=== PATIENT | female | born 1955 | race Caucasian/White ===

== ENCOUNTER 2016-03-23 14:59 | Observation (INO) | payer BC ==
[2016-03-23] MEDS ORDERED: MECLIZINE 12.5 MG TAB PO STA (15:39)
[2016-03-23] MEDS ORDERED: SODIUM CHLORIDE 0.9% 1,000 ML IV STA (15:39)
[2016-03-23 16:02] LABS: Basophils % (A) 1 %; CH 31.1; Eosinophils % (A) 0 %; HCT 40.7 % (34.0-46.0); HDW 2.41; HGB 12.8 gm/dL (11.4-16.0); Luc # (Auto) 0.12; Luc % (Auto) 2; Lymphocytes # (A) 1.5 k/uL (1.0-4.8); Lymphocytes % (A) 21 %; MCH 29.8 pg (25.0-35.0); MCHC 31.5 g/dL (31.0-37.0); MCV 94.8 fL (80.0-100.0); Mean Platelet Volume 7.8; Monocytes % (A) 14 %; Neutrophils # (A) 4.5 k/uL (1.3-7.7); Neutrophils % (A) 63 %; RDW 14.4 % (11.5-15.5); WBC 7.1 k/uL (3.8-10.6); WBC (Perox) 7.64
[2016-03-23 16:10] LABS: ALT 35 U/L (9-52); AST 29 U/L (14-36); Alkaline Phosphatase 62 U/L (38-126); Anion Gap 12 mmol/L; Blood Urea Nitrogen 20 mg/dL (7-17); Calcium 9.5 mg/dL (8.4-10.2); Carbon Dioxide 26 mmol/L (22-30); Chloride 104 mmol/L (98-107); Glucose 78 mg/dL (74-99); Non-African American GFR(MDRD) >60 (>60 ml/min/1.73 sqM); Potassium 4.1 mmol/L (3.5-5.1); Sodium 142 mmol/L (137-145); Total Bilirubin 0.4 mg/dL (0.2-1.3); Total Protein 7.4 g/dL (6.3-8.2)
--- NOTE | 2016-03-23 16:44 | XR ---
EXAMINATION TYPE: XR chest 1V portable DATE OF EXAM: 03/23/2016 4:38 PM Comparison: None Clinical History: 60-year-old female with dizziness, cough, fatigue Findings: Heart is normal size. Aortopulmonary vasculature within normal limits. Some strandy left basilar atel ectasis. No consolidation or pleural effusion. There appears to be old fracture deformity along the p roximal left humerus. Impression: No acute cardiopulmonary process.
[2016-03-23] MEDS ORDERED: DIVALPROEX 500 MG TABLET.DR PO STA (17:19)
--- NOTE | 2016-03-23 17:32 | ED ---
Dizziness HPI - General Source: EMS Mode of arrival: EMS Limitations: no limitations - History of Present Illness MD Complaint: dizziness, difficulty walking -: days(s) Timing: gradual onset Description: "room spinning", difficulty walking History of Same: No Severity: moderate Improves With: remaining still Worsens With: movement Associated Symptoms: denies other symptoms <Allen Del Rio - Last Filed: 03/23/16 18:02> <Deep Norton - Last Filed: 03/23/16 19:07> - General Chief Complaint: Dizziness Stated Complaint: dizziness Time Seen by Provider: 03/23/16 15:04 - History of Present Illness Initial Comments: This patient is a 60-year-old woman who complains of "dizziness." This is been going on for about 3 days and she has had a couple of falls. She states that it is difficult to walk even when using her walker, because she feels that things are spinning. She has also had some difficulty judging distances. The patient denies any injury in the fall that she did have. She landed on her knees but has been able to walk since that time. (Allen Del Rio) - Related Data Home Medications Medication Instructions Recorded Confirmed Ascorbic Acid [Vitamin C] 500 mg PO DAILY 06/15/15 03/23/16 Aspirin 81 mg PO DAILY 06/15/15 03/23/16 Atorvastatin [Lipitor] 10 mg PO HS 06/15/15 03/23/16 Cholecalciferol [Vitamin D3] 1,000 units PO DAILY 06/15/15 03/23/16 Divalproex [Depakote] 250 mg PO DAILY@0900 06/15/15 03/23/16 Divalproex [Depakote] 500 mg PO BID@1400,2100 11/13/15 03/23/16 Loratadine [Claritin] 10 mg PO DAILY 11/13/15 03/23/16 Metoprolol Tartrate [Lopressor] 12.5 mg PO BID 11/13/15 03/23/16 Multivitamins, Thera [Multivitamin] 1 tab PO DAILY 11/13/15 03/23/16 lamoTRIgine [LaMICtal] 50 mg PO DAILY@0900 11/13/15 03/23/16 lamoTRIgine [LaMICtal] 100 mg PO HS 11/13/15 03/23/16 Previous Rx's Medication Instructions Recorded Meclizine [Antivert] 25 mg PO TID #15 tab 03/23/16 Allergies Allergy/AdvReac Type Severity Reaction Status Date / Time No Known Allergies Allergy Verified 03/23/16 15:36 Review of Systems ROS Other: All systems not noted in ROS Statement are negative. Constitutional: Denies: fever, chills, weakness Eyes: Denies: vision change Respiratory: Denies: cough, dyspnea Cardiovascular: Denies: chest pain, palpitations, syncope Gastrointestinal: Denies: abdominal pain, nausea, vomiting Genitourinary: Denies: dysuria, hematuria Musculoskeletal: Denies: back pain Skin: Denies: rash Neurological: Reports: vertigo. Denies: headache, weakness, numbness, paresthesias, confusion <Allen Del Rio - Last Filed: 03/23/16 18:02> ROS Other: All systems not noted in ROS Statement are negative. <Deep Norton - Last Filed: 03/23/16 19:07> ROS Statement: Those systems with pertinent positive or pertinent negative responses have been documented in the HPI. Past Medical History Additional Past Medical History / Comment(s): pettimal seizure, hypertension, hypoglycemia, shingles x2 History of Any Multi-Drug Resistant Organisms: None Reported Past Surgical History: Adenoidectomy, Tonsillectomy Additional Past Surgical History / Comment(s): eye surgery, cataract Past Anesthesia/Blood Transfusion Reactions: No Reported Reaction Past Psychological History: No Psychological Hx Reported Smoking Status: Never smoker Past Alcohol Use History: None Reported Past Drug Use History: None Reported <Allen Del Rio - Last Filed: 03/23/16 18:02> General Exam Limitations: no limitations General appearance: alert, in no apparent distress Head exam: Present: atraumatic, normocephalic Eye exam: Present: normal appearance, nystagmus. Absent: scleral icterus, conjunctival injection ENT exam: Present: normal oropharynx Neck exam: Present: normal inspection Respiratory exam: Present: normal lung sounds bilaterally. Absent: respiratory distress, wheezes, rales, rhonchi, stridor, chest wall tenderness Cardiovascular Exam: Present: regular rate, normal rhythm, normal heart sounds. Absent: systolic murmur, diastolic murmur, rubs, gallop GI/Abdominal exam: Present: soft. Absent: distended, tenderness, guarding, rebound, mass Extremities exam: Present: normal inspection, normal capillary refill. Absent: pedal edema, calf tenderness Back exam: Present: normal inspection. Absent: CVA tenderness (R), CVA tenderness (L) Neurological exam: Present: alert, oriented X3, CN II-XII intact. Absent: motor sensory deficit Skin exam: Present: warm, dry, intact, normal color. Absent: rash <Allen Del Rio - Last Filed: 03/23/16 18:02> EKG Findings - EKG Results: EKG: interpreted by ERMD, sinus rhythm (Rate 71 bpm), normal QRS, normal ST/T - [place]ocks, [place], Hypertrophy, ST Abn: QRS axis and voltage: right axis deviation (+90 to +180) <Allen Del Rio - Last Filed: 03/23/16 18:02> Medical Decision Making - Lab Data Result diagrams: 03/23/16 15:13 03/23/16 15:13 <Allen Del Rio - Last Filed: 03/23/16 18:02> - Lab Data Result diagrams: 03/23/16 15:13 03/23/16 15:13 <Deep Norton - Last Filed: 03/23/16 19:07> - Medical Decision Making The patient was seen and examined. The computed tomography scan of the brain shows a very large subdural hygroma. This apparently is unchanged from recent MRI scan from this past month. Upon reevaluation, the aunt who is the power of divorce attorney relates that she's having multiple falls and difficulty with eating. She does not feel comfortable taking her home. Her dizziness may be related to vertigo but could be from another etiology as well. It is felt as though she benefit from admission and further neurologic workup. She apparently did see a neurosurgeon in [place] this past month and they did not recommend surgical treatment of the subdural hygroma. Case will be discussed with internal medicine in the near future and patient will be admitted. (Deep Norton) - Lab Data Lab Results 03/23/16 03/23/16 03/23/16 Range/Units 15:13 15:13 15:13 WBC 7.1 (3.8-10.6) k/uL RBC 4.30 (3.80-5.40) m/uL Hgb 12.8 (11.4-16.0) gm/dL Hct 40.7 (34.0-46.0) % MCV 94.8 (80.0-100.0) fL MCH 29.8 (25.0-35.0) pg MCHC 31.5 (31.0-37.0) g/dL RDW 14.4 (11.5-15.5) % Plt Count 107 L (150-450) k/uL Neutrophils % 63 % Lymphocytes % 21 % Monocytes % 14 % Eosinophils % 0 % Basophils % 1 % Neutrophils # 4.5 (1.3-7.7) k/uL Lymphocytes # 1.5 (1.0-4.8) k/uL Monocytes # 1.0 (0-1.0) k/uL Eosinophils # 0.0 (0-0.7) k/uL Basophils # 0.0 (0-0.2) k/uL Sodium 142 (137-145) mmol/L Potassium 4.1 (3.5-5.1) mmol/L Chloride 104 (98-107) mmol/L Carbon Dioxide 26 (22-30) mmol/L Anion Gap 12 mmol/L BUN 20 H (7-17) mg/dL Creatinine 0.75 (0.52-1.04) mg/dL Est GFR (MDRD) Af Amer >60 (>60 ml/min/1.73 sqM) Est GFR (MDRD) Non-Af >60 (>60 ml/min/1.73 sqM) Glucose 78 (74-99) mg/dL Plasma Lactic Acid Edgar (0.7-2.0) mmol/L Calcium 9.5 (8.4-10.2) mg/dL Total Bilirubin 0.4 (0.2-1.3) mg/dL AST 29 (14-36) U/L ALT 35 (9-52) U/L Alkaline Phosphatase 62 (38-126) U/L Troponin I <0.012 (0.000-0.034) ng/mL Total Protein 7.4 (6.3-8.2) g/dL Albumin 4.1 (3.5-5.0) g/dL 03/23/16 Range/Units 16:16 WBC (3.8-10.6) k/uL RBC (3.80-5.40) m/uL Hgb (11.4-16.0) gm/dL Hct (34.0-46.0) % MCV (80.0-100.0) fL MCH (25.0-35.0) pg MCHC (31.0-37.0) g/dL RDW (11.5-15.5) % Plt Count (150-450) k/uL Neutrophils % % Lymphocytes % % Monocytes % % Eosinophils % % Basophils % % Neutrophils # (1.3-7.7) k/uL Lymphocytes # (1.0-4.8) k/uL Monocytes # (0-1.0) k/uL Eosinophils # (0-0.7) k/uL Basophils # (0-0.2) k/uL Sodium (137-145) mmol/L Potassium (3.5-5.1) mmol/L Chloride (98-107) mmol/L Carbon Dioxide (22-30) mmol/L Anion Gap mmol/L BUN (7-17) mg/dL Creatinine (0.52-1.04) mg/dL Est GFR (MDRD) Af Amer (>60 ml/min/1.73 sqM) Est GFR (MDRD) Non-Af (>60 ml/min/1.73 sqM) Glucose (74-99) mg/dL Plasma Lactic Acid Edgar 0.8 (0.7-2.0) mmol/L Calcium (8.4-10.2) mg/dL Total Bilirubin (0.2-1.3) mg/dL AST (14-36) U/L ALT (9-52) U/L Alkaline Phosphatase (38-126) U/L Troponin I (0.000-0.034) ng/mL Total Protein (6.3-8.2) g/dL Albumin (3.5-5.0) g/dL Disposition <Allen Del Rio - Last Filed: 03/23/16 18:02> Time of Disposition: 19:07 Decision Date: 03/23/16 Decision Time: 19:07 <Deep Norton - Last Filed: 03/23/16 19:07> Clinical Impression: Dizziness, Recurrent falls, Subdural hygroma Disposition: ADMITTED IP TO THIS [facility] Condition: Fair Prescriptions: Meclizine [Antivert] 25 mg PO TID #15 tab
--- NOTE | 2016-03-23 18:03 | CT ---
EXAMINATION TYPE: CT brain wo con DATE OF EXAM: 03/23/2016 5:50 PM COMPARISON: NONE HISTORY: Frequent falls. CT DLP: 995.50 mGycm Automated exposure control for dose reduction was used. FINDINGS: There is a large extra-axial fluid collection over the right cerebral hemisphere with some mass effec t. There is shift of the midline to the left side. There is calcification at the cortical convexity. The fluid measures up to 1.7 cm in thickness. There is some mild effacement of the right lateral vent ricle. There is enlargement of the left lateral ventricle. Third ventricle is large. There is no evid ence of acute intracranial hemorrhage. The calvarium is intact. IMPRESSION: There is a large extra-axial right hemisphere fluid collection consistent with epidural and subdural chronic hematoma with extensive calcification at the cortical convexity of the right cerebral hemisph ere. This could be dural calcification. There is mild normal pressure type hydrocephalus. There is mi ld mass effect. I see no acute intracranial abnormality. The appearance is stable compared to the MR scan of 02/22/2016.
[2016-03-23] MEDS ORDERED: ONDANSETRON 4 MG/2 ML VIAL IVP PRN (19:38)
[2016-03-23] MEDS ORDERED: ACETAMINOPHEN TAB 325 MG TAB PO PRN (19:38)
[2016-03-23] MEDS ORDERED: MECLIZINE 25 MG TAB PO PRN (19:42)
[2016-03-23 21:48] VITALS: BMI 31.5
[2016-03-23] MEDS: DIVALPROEX 500 MG TABLET.DR PO SCH (22:06)
[2016-03-23] MEDS: METOPROLOL TARTRATE 12.5 MG TAB PO SCH (22:15)
[2016-03-23] MEDS: ATORVASTATIN 10 MG TAB PO SCH (22:15)
[2016-03-23] MEDS: lamoTRIgine 100 MG TAB PO SCH (22:15)
[2016-03-24] MEDS: lamoTRIgine 25 MG TAB PO SCH (08:25)
[2016-03-24] MEDS: ASPIRIN 81 MG CHEW PO SCH (08:25)
[2016-03-24] MEDS: PANTOPRAZOLE 40 MG/10 ML VIAL IV SCH (08:25)
[2016-03-24] MEDS: ENOXAPARIN 40 MG/0.4 ML SYRINGE SQ SCH (08:25)
[2016-03-24] MEDS: ASCORBIC ACID 500 MG TAB PO SCH (08:25)
[2016-03-24] MEDS: LORATADINE 10 MG TAB PO SCH (08:25)
[2016-03-24] MEDS: CHOLECALCIFEROL 1,000 UNIT TAB PO SCH (08:25)
[2016-03-24] MEDS: METOPROLOL TARTRATE 12.5 MG TAB PO SCH ×2 (08:25→20:44)
[2016-03-24] MEDS: MULTIVITAMINS, THERA 1 EACH TAB PO SCH (08:25)
[2016-03-24 08:48] LABS: Appearance,Urine Clear (Clear); Bacteria,Urine Rare /hpf; Bilirubin,Urine Negative (Negative); Glucose,Urine (UA) Negative (Negative); Ketones,Urine 1+ (Negative); Leukocyte Esterase,Urine Small (Negative); Mucus,Urine Few /hpf; Nitrite,Urine Negative (Negative); Particle Count 3394; Protein,Urine Negative (Negative); RBC,Urine 2 /hpf (0-5); Specific Gravity,Urine 1.022 (1.001-1.035); Squamous Epithelial Cell,Urine <1 /hpf (0-4); UA Billing (MACRO vs. MICRO) MICRO; WBC,Urine 4 /hpf (0-5)
[2016-03-24] MEDS: DIVALPROEX 250 MG TABLET.DR PO SCH (09:30)
--- NOTE | 2016-03-24 12:38 | P.CNNES ---
History of Present Illness Consult date: 03/24/16 Reason for Consult: Patient with dizziness and large right sided epidural hygroma. History of Present Illness: This patient is a 60-year-old right-handed white female who was brought into the emergency room yesterday evening for evaluation of dizziness and difficulty with walking. She was seen in the ER by Dr. Del Rio. She was sent for computed tomography scan of the brain for further evaluation. CAT scan of the brain revealed a large extra-axial right hemispheric fluid collection consistent with a chronic subdural hematoma with extensive calcification on the cortical convexity of the right cerebral hemisphere. There was mild mass effect noted as well. This was compared to an MRI scan of the brain that was done on 2015 there was no significant change. Patient's symptoms of dizziness seem to be more for vertigo and lightheadedness. She does have difficulty with gait secondary to visual disturbances from her past history. She also has a history of underlying seizure disorder for which she has been taking combination of Lamictal and Depakote. The patient states that she does feel dizzy and describes it as a sense of being pulled to the right side. This has been ongoing over the last several months. Due to her history of chronic subdural hematoma she was seen in the neurosurgery clinic on 03/13/[address] Del Real. There recommendations was no surgical intervention for the drainage of this subdural hematoma as his has remained stable. Her CAT scan films were reviewed today with radiology. Her CAT scan of the brain that was done yesterday remains unchanged from a previous CAT scan of the brain done in 2010. Her current findings are felt to be very much chronic in nature. This is not the cause of her current symptoms of dizziness. She more likely has some degree of vestibular neuronitis which may benefit from a trial of low-dose meclizine. The patient otherwise seems to be appropriate and has had no seizures. We have checked her anticonvulsant blood levels this morning and they're both therapeutic. Neurology is now been consulted for further evaluation and recommendations. Review of Systems Constitutional: Denies chills, Denies fever Eyes: denies blurred vision, denies pain Ears, nose, mouth and throat: Denies headache, Denies sore throat Cardiovascular: Denies chest pain, Denies shortness of breath Respiratory: Denies cough Gastrointestinal: Denies abdominal pain, Denies diarrhea, Denies nausea, Denies vomiting Genitourinary: Denies dysuria, Denies hematuria Musculoskeletal: Denies myalgias Integumentary: Denies pruritus, Denies rash Neurological: Reports gait dysfunction, Reports vertigo, Denies numbness, Denies weakness Psychiatric: Denies anxiety, Denies depression Endocrine: Denies fatigue, Denies weight change Past Medical History Additional Past Medical History / Comment(s): pettimal seizures, hypertension, hypoglycemia, shingles x2, 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 History of Any Multi-Drug Resistant Organisms: None Reported Past Surgical History: Adenoidectomy, Tonsillectomy Additional Past Surgical History / Comment(s): eye surgery, cataract removed 2009 Past Anesthesia/Blood Transfusion Reactions: No Reported Reaction Past Psychological History: No Psychological Hx Reported Smoking Status: Never smoker Past Alcohol Use History: None Reported Past Drug Use History: None Reported Medications and Allergies Home Medications Medication Instructions Recorded Confirmed Type Ascorbic Acid [Vitamin C] 500 mg PO DAILY 06/15/15 03/23/16 History Aspirin 81 mg PO DAILY 06/15/15 03/23/16 History Atorvastatin [Lipitor] 10 mg PO HS 06/15/15 03/23/16 History Cholecalciferol [Vitamin D3] 1,000 units PO DAILY 06/15/15 03/23/16 History Divalproex [Depakote] 250 mg PO DAILY@0900 06/15/15 03/23/16 History Divalproex [Depakote] 500 mg PO BID@1400,2100 11/13/15 03/23/16 History Loratadine [Claritin] 10 mg PO DAILY 11/13/15 03/23/16 History Metoprolol Tartrate [Lopressor] 12.5 mg PO BID 11/13/15 03/23/16 History Multivitamins, Thera [Multivitamin] 1 tab PO DAILY 11/13/15 03/23/16 History lamoTRIgine [LaMICtal] 50 mg PO DAILY@0900 11/13/15 03/23/16 History lamoTRIgine [LaMICtal] 100 mg PO HS 11/13/15 03/23/16 History Allergies Allergy/AdvReac Type Severity Reaction Status Date / Time No Known Allergies Allergy Verified 03/23/16 21:53 Physical Examination - Vital Signs Vital Signs: Vital Signs Temp Pulse Pulse Resp BP BP Pulse Ox 03/24/16 07:00 97.1 F L 75 16 117/68 99 03/23/16 21:12 99.1 F 76 20 124/70 100 03/23/16 20:22 98.5 F 81 18 106/56 98 Intake and Output 03/23/16 03/24/16 03/24/16 22:59 06:59 14:59 Intake Total 400 Output Total 50 Balance 400 -50 Intake: Oral 400 Output: Urine 50 Other: Voiding Method Bedpan # Voids 1 Weight 78.24 kg - Constitutional General appearance: average body habitus - EENT EENT: PERRL, mucous membranes moist - Respiratory Respiratory: lungs clear, normal breath sounds - Cardiovascular Cardiovascular: regular rate, normal S1, normal S2 Extremities: no peripheral edema bilaterally - Gastrointestinal Gastrointestinal: normoactive bowel sounds - Integumentary Integumentary: normal - Neurologic Cranial nerve examination: PERRL, EOMI, VFF, V1/V2/V3 grossly intact, face symmetric, tongue midline, intact gag reflex, intact corneal reflex, normal palatal elevation Speech examination: intact Sensorimotor examination: intact Motor examination - right side: 4/5: biceps, triceps, wrist flexion, wrist extension, insurance counselor, hip flexors, knee extensors, dorsiflexion, toe extension (EHL) , plantarflexion Motor examination - left side: 4/5: biceps, triceps, wrist flexion, wrist extension, insurance counselor, hip flexors, knee extensors, dorsiflexion, toe extension (EHL) , plantarflexion Detailed sensory examination: intact Reflex and gait examination: intact Reflexes: 1+: ankle, bicep, knee, tricep - Musculoskeletal Musculoskeletal: no pain - Psychiatric Psychiatric: mood/affect appropriate, cooperative Results - Laboratory Findings CBC and BMP: 03/23/16 15:13 03/23/16 15:13 Abnormal Lab Findings: Abnormal Labs 03/23/16 20:23 Valproic Acid 101.6 H* Assessment and Plan (1) Chronic subdural hematoma Status: Acute Code(s): I62.03 - NONTRAUMATIC CHRONIC SUBDURAL HEMORRHAGE (2) Vestibular neuronitis Status: Acute Code(s): H81.20 - VESTIBULAR NEURONITIS, UNSPECIFIED EAR (3) Gait disorder Status: Acute Code(s): R26.9 - UNSPECIFIED ABNORMALITIES OF GAIT AND MOBILITY (4) Recurrent falls Status: Acute Code(s): R29.6 - REPEATED FALLS Plan: This patient is a 60-year-old female who was admitted with symptoms of increased dizziness and falls. She has a history of a large chronic right- sided subdural hematoma with calcification. This is remain unchanged since previous scanning done in 2010. She was seen in the neurosurgery clinic on 05/2016 for further evaluation of this chronic subdural hematoma. She was recommended no surgical intervention as they felt this may worsen her condition. The CAT scan reveals no significant change in terms of the size or the fact compared to her previous CAT scan done in 2010. We reviewed these results today with the patient. Her aunt who is her power of regulatory attorney was at bedside and all of the test results were discussed with her as well in detail. Patient does have history of underlying seizure disorder and should be maintained on Depakote and Lamictal. Her Depakote level this morning is 85.4. Overall she seems to be doing fairly well. She does have some horizontal nystagmus which may be related to vestibular neuronitis. We will start her on low-dose meclizine and monitor response. We will obtain routine EEG for the patient as well. Her overall prognosis at this time remains very guarded. Case was discussed at length with the patient's onto his at bedside and is her power of regulatory attorney. She is aware of her guarded condition. Time with Patient: Greater than 30
[2016-03-24] MEDS: SODIUM CHLORIDE 0.9% 1,000 ML IV SCH ×2 (12:52→18:25)
[2016-03-24] MEDS: DIVALPROEX 500 MG TABLET.DR PO SCH ×2 (15:01→20:44)
--- NOTE | 2016-03-24 16:03 | HP ---
DATE OF ADMISSION: The patient is a 60-year-old female who came in with dizziness which she says it is lightheadedness, and patient has some developmental problems as patient was born as a twin and other twin at . Patient does have some mass in the head, which is chronic fluid collection in the epidural and subdural chronic hematoma and for which no further intervention is being done, which is fairly stable at this point of time. Although patient's symptoms appear to be dizziness, patient did not have any syncopal episode. Denied any loss of bowel or bladder incontinence. Neurology evaluated the patient and apparently on their exam. Patient has nystagmus, so because of which they believe it is vertigo. I did not perform Tilton-Hallpike maneuver at this point of time. Patient denied any room spinning around for me. She says she is lightheaded but apparently she complained of room spinning to the ER physician and patient feels like she is falling towards the right side, although she does not have any weakness on the right side, does have chronic weakness on the left side. Patient denied any fever, chills, nausea, vomiting, diarrhea. REVIEW OF SYSTEMS: CONSTITUTIONAL: No fever, no malaise, no fatigue. HEENT: No recent visual problems or hearing problems. Denied any sore throat. CARDIOVASCULAR: No chest pain, orthopnea, PND, no palpitations, no syncope. PULMONARY: No shortness of breath, no cough, no hemoptysis. GASTROINTESTINAL: No diarrhea, no nausea, no vomiting, no abdominal pain. Normoactive bowel sounds. NEUROLOGICAL: As described in HPI. HEMATOLOGICAL: Denies any bleeding or petechiae. GENITOURINARY: Denies any burning micturition, frequency, or urgency. MUSCULOSKELETAL/RHEUMATOLOGICAL: Denies any joint pain, swelling, or any muscle pain. ENDOCRINE: Denies any polyuria or polydipsia. The rest of the 14 point review of systems is negative. Home medications include: 1. Ascorbic acid. 2. Aspirin. 3. Atorvastatin. 4. Cholecalciferol. 5. Depakote. ' 6. Metoprolol. 7. Multivitamin. 8. Lamotrigine. 9. Meclizine. ALLERGIES: No known drug allergies. Past medical history is significant for seizures, hypertension, ( ). Patient has a mass in the brain, which is chronic and hematoma in the brain, which is chronic and chronic weakness on the left side of the body. SOCIAL HISTORY: Denies smoking, alcohol abuse or any drug abuse. FAMILY HISTORY: Denied any family history of hypertension, diabetes mellitus or coronary artery disease in the family. PHYSICAL EXAMINATION: Temperature 97.1, pulse 75, respiratory rate of 16, blood pressure is 117/68, saturating at 99% on room air. GENERAL: The patient is alert and oriented x3, not in any acute distress. Well developed, well nourished. HEENT: Pupils are round and equally reacting to light. EOMI. No scleral icterus. No conjunctival pallor. Normocephalic, atraumatic. No pharyngeal erythema. No thyromegaly. CARDIOVASCULAR: S1 and S2 present. No murmurs, rubs, or gallops. PULMONARY: Chest is clear to auscultation, no wheezing or crackles. ABDOMEN: Soft, nontender, nondistended, normoactive bowel sounds. No palpable organomegaly. MUSCULOSKELETAL: No joint swelling or deformity. EXTREMITIES: No cyanosis, clubbing, or pedal edema. NEUROLOGICAL: Defer to neurologist evaluation. SKIN: No rashes. CT of the head as mentioned above. Chest x-ray was reviewed, which is within normal limits. ASSESSMENT AND PLAN: 1. Dizziness; history is not clear whether patient has vertigo or actual lightheadedness. I will obtain echocardiogram and patient will need PT and OT evaluation. I will start her on IV fluids because of possibility of intravascular volume depletion contributing to her dizziness. This might as well vertigo, which is the most probable cause for which Neurology evaluated the patient. No further recommendations from them. Patient's symptoms get worse when she gets up, which happens in both syncope and vertigo. 2. Chronic weakness in the left side of the body. No further intervention at this point of time. Because of the weakness and patient is ( ), will get PT and OT evaluation. Will see if she will need any physical therapy or subacute rehab placement. 3. Hyperlipidemia. 4. Hypertension. 5. Seizure disorder. 6. Hypothyroidism. For above-mentioned chronic medical problems, I will go ahead and continue her home medications. Patient is not on any antihypertensive medications at this point of time. Regarding her seizure medications, patient's Depakote level is available at this point of time, minimally elevated than normal, normal is 100, it is 101. I do not believe patient has any Depakote toxicity at this time. PT and OT tomorrow. Disposition depending on their assessment.
[2016-03-24] MEDS: MECLIZINE 12.5 MG TAB PO SCH (20:44)
[2016-03-24] MEDS: ATORVASTATIN 10 MG TAB PO SCH (20:44)
[2016-03-24] MEDS: lamoTRIgine 100 MG TAB PO SCH (20:44)
[2016-03-25] MEDS: SODIUM CHLORIDE 0.9% 1,000 ML IV SCH ×3 (04:38→16:46)
[2016-03-25] MEDS: ENOXAPARIN 40 MG/0.4 ML SYRINGE SQ SCH (07:46)
[2016-03-25] MEDS: METOPROLOL TARTRATE 12.5 MG TAB PO SCH ×2 (07:46→21:14)
[2016-03-25] MEDS: DIVALPROEX 250 MG TABLET.DR PO SCH (07:46)
[2016-03-25] MEDS: lamoTRIgine 25 MG TAB PO SCH (07:47)
[2016-03-25] MEDS: PANTOPRAZOLE 40 MG/10 ML VIAL IV SCH (07:47)
[2016-03-25] MEDS: ASCORBIC ACID 500 MG TAB PO SCH (07:47)
[2016-03-25] MEDS: LORATADINE 10 MG TAB PO SCH (07:47)
[2016-03-25] MEDS: CHOLECALCIFEROL 1,000 UNIT TAB PO SCH (07:47)
[2016-03-25] MEDS: MULTIVITAMINS, THERA 1 EACH TAB PO SCH (07:48)
[2016-03-25] MEDS: MECLIZINE 12.5 MG TAB PO SCH ×2 (07:48→21:14)
[2016-03-25] MEDS: ASPIRIN 81 MG CHEW PO SCH (07:48)
[2016-03-25] MEDS: DIVALPROEX 500 MG TABLET.DR PO SCH ×2 (14:51→21:13)
--- NOTE | 2016-03-25 16:02 | P.PN ---
Subjective This patient is a 60-year-old right-handed white female who is followed today for symptoms of dizziness. Patient has a known history of a large right subdural hematoma which has been recently evaluated by her neurosurgeon. She does not require any surgical intervention for this lesion as it has remained stable. Over the last few days she was having increased dizziness which was positional. She was admitted to hospital for further management. She was started on low-dose meclizine for treatment of vestibular component to her dizziness. She seems to be tolerating the meclizine quite well. She also has underlying history of seizure disorder for which she is taking combination of Lamictal and Depakote. We will be checking her Depakote levels and adjusting her dose as needed. She will be scheduled for EEG tomorrow for further assessment as well. The patient is noted improvement with her vertigo symptoms since starting on meclizine yesterday. She does feel the improvement as made her much more stable when she is standing. She is being considered for ongoing physical therapy in the outpatient setting as well. We will recheck her anticonvulsant blood levels tomorrow and adjust as needed. Overall the patient seems to be making slow progress. We will continue close neurological follow- up with the patient during this admission. Objective - Vital Signs Vital signs: Vital Signs Temp 98.1 F 03/25/16 07:00 Pulse 73 03/25/16 07:00 Resp 20 03/25/16 07:00 BP 114/59 03/25/16 07:00 Pulse Ox 98 03/25/16 07:00 Intake & Output 03/24/16 03/25/16 03/25/16 18:59 06:59 18:59 Other: Voiding Method Bedside Commode Bedpan # Voids 1 2 # Bowel Movements 1 - Exam Physical examination: PHYSICAL EXAMINATION: Patient is resting comfortably in bed. VITAL SIGNS: Blood pressure is [114/59]. Heart rate is [73]. Respiration is [20] . Temperature is [98.1]. HEENT: Head is atraumatic, neck is supple, there were no carotid bruits. CHEST: Lungs are clear to auscultation and percussion. CARDIAC: S1, S2 normal rate and rhythm. There is no murmur. ABDOMEN: Soft and nontender. Bowel sounds are present. EXTREMITIES: There is no pedal edema. Peripheral pulses are present. Neurological examination: Patient's neurological examination is unchanged from yesterday. - Labs CBC & Chem 7: 03/23/16 15:13 03/23/16 15:13 Labs: Microbiology - Last 24 Hours (Table) 03/24/16 08:25 Urine Culture - Preliminary Urine,Clean Catch Assessment and Plan (1) Chronic subdural hematoma Status: Acute Code(s): I62.03 - NONTRAUMATIC CHRONIC SUBDURAL HEMORRHAGE (2) Vestibular neuronitis Status: Acute Code(s): H81.20 - VESTIBULAR NEURONITIS, UNSPECIFIED EAR (3) Gait disorder Status: Acute Code(s): R26.9 - UNSPECIFIED ABNORMALITIES OF GAIT AND MOBILITY (4) Recurrent falls Status: Acute Code(s): R29.6 - REPEATED FALLS Plan: This patient is a 60-year-old female who was admitted with symptoms of increased dizziness and falls. She has a history of a large chronic right- sided subdural hematoma with calcification. This is remain unchanged since previous scanning done in 2010. She was seen in the neurosurgery clinic on 05/2016 for further evaluation of this chronic subdural hematoma. She was recommended no surgical intervention as they felt this may worsen her condition. The CAT scan reveals no significant change in terms of the size or the fact compared to her previous CAT scan done in 2010. We reviewed these results today with the patient. Her aunt who is her power of employment law attorney was at bedside and all of the test results were discussed with her as well in detail. Patient does have history of underlying seizure disorder and should be maintained on Depakote and Lamictal. Her Depakote level this morning is 85.4. Overall she seems to be doing fairly well. She does have some horizontal nystagmus which may be related to vestibular neuronitis. We will start her on low-dose meclizine and monitor response. We will obtain routine EEG for the patient as well. The patient has noted improvement since starting on meclizine yesterday. She feels the dizziness has significantly improved on this medication. She does seem to have less horizontal nystagmus on exam today as well. Patient is being evaluated by physical therapy for possible outpatient PT or subacute rehab. We will await their further recommendations. Her overall prognosis at this time remains very guarded. Case was discussed yesterday at length with the patient's Aunt who was at bedside and is her power of employment law attorney. She is aware of her guarded condition. We will continue close neurological follow-up for the patient.
--- NOTE | 2016-03-25 17:04 | PN ---
Patient came in with dizziness, appears to be mostly vertiginous ( ), improved symptoms at this point of time. Patient has nystagmus as well. The whole work-up, patient brain CT is essentially negative but patient is quite unstable because of which will need a placement in rehabilitation. Patient was also fluid restrictive with suspicion of intravascular volume depletion contributing to her lightheadedness. Patient has resting nystagmus. REVIEW OF SYSTEMS: CARDIOVASCULAR: No chest pain, no orthopnea, no PND, no palpitations. PULMONARY: Denied any shortness of breath. No cough or hemoptysis. GASTROINTESTINAL: No diarrhea, nausea or vomiting. No abdominal pain. Normoactive bowel sounds. NEUROLOGIC: No headaches, no weakness, no numbness. Medications were reviewed. PHYSICAL EXAMINATION: Temperature 98.1, pulse of 73, respiratory rate of 20, blood pressure 114/53, saturating at 98% on 2 L of O2 by nasal cannula. GENERAL: The patient is alert and oriented x3, not in any acute distress. Well developed, well nourished. HEENT: Pupils are round and equally reacting to light. EOMI. No scleral icterus. No conjunctival pallor. Normocephalic, atraumatic. No pharyngeal erythema. No thyromegaly. CARDIOVASCULAR: S1 and S2 present. No murmurs, rubs, or gallops. PULMONARY: Chest is clear to auscultation, no wheezing or crackles. ABDOMEN: Soft, nontender, nondistended, normoactive bowel sounds. No palpable organomegaly. MUSCULOSKELETAL: No joint swelling or deformity. EXTREMITIES: No cyanosis, clubbing, or pedal edema. SKIN: No rashes. NEUROLOGICAL: Unchanged as compared to yesterday. LABORATORY DATA: None available from today. ASSESSMENT AND PLAN: 1. Dizziness, I cannot completely say with confidence that it is either lightheadedness or vertigo, anyways, if etiology is vertigo, her peripheral vertigo symptoms resolved. Work-up as mentioned above, but patient is quite unstable. Will need subacute rehabilitation placement. 2. Chronic weakness on the left side of the body. 3. Seizure disorder. 4. Hypertension. 5. Hyperlipidemia. 6. Hypothyroidism. 7. Patient does have right hemispheric fluid collection consistent with ( ) subdural hematoma which is chronic.
[2016-03-25] MEDS: ATORVASTATIN 10 MG TAB PO SCH (21:13)
[2016-03-25] MEDS: lamoTRIgine 100 MG TAB PO SCH (21:14)
[2016-03-26] MEDS: SODIUM CHLORIDE 0.9% 1,000 ML IV SCH ×4 (03:35→15:07)
[2016-03-26] MEDS: ASPIRIN 81 MG CHEW PO SCH (07:55)
[2016-03-26] MEDS: ENOXAPARIN 40 MG/0.4 ML SYRINGE SQ SCH (07:55)
[2016-03-26] MEDS: CHOLECALCIFEROL 1,000 UNIT TAB PO SCH (07:55)
[2016-03-26] MEDS: DIVALPROEX 250 MG TABLET.DR PO SCH (07:55)
[2016-03-26] MEDS: MECLIZINE 12.5 MG TAB PO SCH ×2 (07:56→20:49)
[2016-03-26] MEDS: lamoTRIgine 25 MG TAB PO SCH (07:56)
[2016-03-26] MEDS: MULTIVITAMINS, THERA 1 EACH TAB PO SCH (07:56)
[2016-03-26] MEDS: LORATADINE 10 MG TAB PO SCH (07:56)
[2016-03-26] MEDS: METOPROLOL TARTRATE 12.5 MG TAB PO SCH ×2 (07:56→20:49)
[2016-03-26] MEDS: PANTOPRAZOLE 40 MG/10 ML VIAL IV SCH (07:57)
[2016-03-26] MEDS: ASCORBIC ACID 500 MG TAB PO SCH (09:58)
--- NOTE | 2016-03-26 10:04 | ECHOF ---
Referral Reason:dizziness MEASUREMENTS -------- HEIGHT: 157.5 cm WEIGHT: 78.0 kg BP: 127/74 RVIDd: 2.3 cm (< 3.3) IVSd: 0.8 cm (0.6 - 1.1) LVIDd: 3.5 cm (3.9 - 5.3) LVPWd: 0.8 cm (0.6 - 1.1) IVSs: 1.2 cm LVIDs: 2.5 cm LVPWs: 1.2 cm LA Diam: 3.0 cm (2.7 - 3.8) LAESV Index (A-L): 21.15 ml/m Ao Diam: 2.5 cm (2.0 - 3.7) AV Cusp: 1.7 cm (1.5 - 2.6) LA Diam: 2.8 cm (2.7 - 3.8) MV EXCURSION: 6.377 mm (> 18.000) MV EF SLOPE: 51 mm/s (70 - 150) EPSS: 0.7 cm MV E Ion: 1.07 m/s MV DecT: 223 ms MV A Ion: 0.98 m/s MV E/A Ratio: 1.09 RAP: 5.00 mmHg RVSP: 27.68 mmHg FINDINGS -------- Sinus rhythm. This was a technically adequate study. Left ventricular wall thickness is normal. Overall left ventricular systolic function is normal with, an EF between 55 - 60 %. The right ventricle is normal in size. Normal LA size by volume 22+/-6 ml/m2. The right atrium is normal in size. 1.5MG OF DEFINITY UTLIZED: 2 OR MORE WALL SEGMENTS NOT VISUALIZED. The aortic valve is trileaflet and appears structurally normal. Mild mitral annular calcification present. Mild tricuspid regurgitation present. Right ventricular systolic pressure is normal at < 35 mmHg. Trace/mild (physiologic) pulmonic regurgitation. The aortic root size is normal. Normal inferior vena cava with normal inspiratory collapse consistent with estimated right atrial pressure of 5 mmHg. There is no pericardial effusion. CONCLUSIONS -------- 1. Sinus rhythm. 2. Mild mitral annular calcification present. 3. Mild tricuspid regurgitation present. 4. Right ventricular systolic pressure is normal at < 35 mmHg. 5. Trace/mild (physiologic) pulmonic regurgitation. 6. The aortic root size is normal. 7. There is no pericardial effusion. 8. This was a technically adequate study. 9. Left ventricular wall thickness is normal. 10. Overall left ventricular systolic function is normal with, an EF between 55 - 60 %. 11. The right ventricle is normal in size. 12. Normal LA size by volume 22+/-6 ml/m2. 13. The right atrium is normal in size. 14. 1.5MG OF DEFINITY UTLIZED: 2 OR MORE WALL SEGMENTS NOT VISUALIZED. 15. The aortic valve is trileaflet and appears structurally normal. [place] AD[employer]ISTRATIVE LAW JUDGE: Greyson Rivera RDCS
[2016-03-26] MEDS: DIVALPROEX 500 MG TABLET.DR PO SCH ×2 (13:54→20:49)
--- NOTE | 2016-03-26 14:34 | P.PN ---
Subjective Date of service 03/26/2016. Progress note being dictated for Dr. Huang Interval history: This is a 60-year-old female admitted with dizziness, possible vertigo, in a patient with chronic left-sided weakness, chronic subdural hematoma, seizure disorder and multiple other medical issues. Evaluated by neurology with neuro workup in progress. Resting nystagmus present. Echo reporting normal LV function, EF 55-60%, 2 or more wall segments not visualized. EEG completed, results pending. Valproic acid level 83.5. Currently denies any lightheadedness or dizziness. Denies chest pain, palpitations or increasing shortness of breath. Objective - Vital Signs Vital signs: Vital Signs Temp 97.7 F 03/26/16 07:00 Pulse 78 03/26/16 07:00 Resp 16 03/26/16 07:00 BP 138/69 03/26/16 07:00 Pulse Ox 96 03/26/16 07:00 Intake & Output 03/25/16 03/26/16 03/26/16 18:59 06:59 18:59 Intake Total 1000 Balance 1000 Intake: IV 1000 Sodium Chloride 0.9% 1, 1000 000 ml @ 125 mls/hr IV . Q8H SHAWN Rx#:[id number] Other: # Voids 1 1 # Bowel Movements 0 - Exam PHYSICAL EXAM: VITAL SIGNS: As above GENERAL: [Sitting up in chair, no acute distress] HEENT: [Pupils equal conjunctiva normal.] NECK: [Supple, no JVD] RESPIRATORY EFFORT:[Normal] LUNGS: [Clear, no wheezing, no crackles] CARDIOVASCULAR[regular S1 and S2, no murmurs rubs or gallops, no edema] GI: [Abdomen soft, nontender, positive bowel sounds.] PSYCH: [Alert and oriented -3, mood and affect normal. Cooperative] NEURO: [Unchanged, resting nystagmus, tongue midline, speech fluent and appropriate] - Labs CBC & Chem 7: 03/23/16 15:13 03/23/16 15:13 Labs: Microbiology - Last 24 Hours (Table) 03/24/16 08:25 Urine Culture - Final Urine,Clean Catch Assessment and Plan Plan: 1. [Dizziness, possibly lightheadedness or vertigo significantly improved on IV fluid hydration, meclizine 2. [Chronic left-sided weakness]. 3. [Seizure disorder, maintained on Depakote and Lamictal]. 4. [Hypertension]. 5. [Hyperlipidemia]. 6. [HypoThyroidism]. 7. Chronic subdural hematoma. 8. Gait disorder, Recurrent falls Plan: Continue on current medication regime ,monitoring and symptomatic treatment. EEG completed, results pending. Patient needs assistance with feeding, meals. Decreased IV fluids. Aunt updated at bedside along with patient on plan of care, verbalized understanding of and agreement with. Evaluated by physical therapy and subacute rehab recommended at discharge. Discharge planning in progress pending ECF pre-CERT. Prognosis guarded given multiple complex medical issues. The impression and plan of care has been dictated as directed. : I performed a H&P examination of this patient and discussed the same with the dictator. I agree with the dictator's note. Any additional findings/opinions/ etc. will be noted.
--- NOTE | 2016-03-26 19:09 | P.PN ---
Subjective This patient is a 60-year-old right-handed white female who is followed today for symptoms of dizziness. Patient has a known history of a large right subdural hematoma which has been recently evaluated by her neurosurgeon. She does not require any surgical intervention for this lesion as it has remained stable. Over the last few days she was having increased dizziness which was positional. She was admitted to hospital for further management. She was started on low-dose meclizine for treatment of vestibular component to her dizziness. She seems to be tolerating the meclizine quite well. She also has underlying history of seizure disorder for which she is taking combination of Lamictal and Depakote. We will be checking her Depakote levels and adjusting her dose as needed. She will be scheduled for EEG tomorrow for further assessment as well. The patient is noted improvement with her vertigo symptoms since starting on meclizine yesterday. She does feel the improvement as made her much more stable when she is standing. She is being considered for possible rehab placement. We will recheck her anticonvulsant blood levels tomorrow and adjust as needed. Her anticonvulsant blood levels today indicate her Lamictal to be therapeutic at 12.9. Her Depakote level was also therapeutic at 83.5. Patient also underwent a routine EEG today which was reviewed. EEG is normal for age. There is no evidence of any epileptic seizure focus. We did review all of these test results today with the patient in detail. She is considering we have [facility]. At this time we will continue her on low dose meclizine as it has helped. She is to continue on both of her current doses of Lamictal and Depakote. We will continue close neurological follow-up with the patient during this admission. Objective - Vital Signs Vital signs: Vital Signs Temp 98.3 F 03/26/16 15:00 Pulse 73 03/26/16 15:00 Resp 18 03/26/16 15:00 BP 126/83 03/26/16 15:00 Pulse Ox 97 03/26/16 15:00 Intake & Output 03/25/16 03/26/16 03/26/16 18:59 06:59 18:59 Intake Total 1000 240 Balance 1000 240 Intake: IV 1000 Sodium Chloride 0.9% 1, 1000 000 ml @ 60 mls/hr IV . [id number] SHAWN Rx#:[id number] Oral 240 Other: # Voids 1 1 1 # Bowel Movements 0 - Exam Physical examination: PHYSICAL EXAMINATION: Patient is resting comfortably in bed. VITAL SIGNS: Blood pressure is [126/83]. Heart rate is [73]. Respiration is [18] . Temperature is [98.3]. HEENT: Head is atraumatic, neck is supple, there were no carotid bruits. CHEST: Lungs are clear to auscultation and percussion. CARDIAC: S1, S2 normal rate and rhythm. There is no murmur. ABDOMEN: Soft and nontender. Bowel sounds are present. EXTREMITIES: There is no pedal edema. Peripheral pulses are present. Neurological examination: Patient's neurological examination is unchanged from yesterday. - Labs CBC & Chem 7: 03/23/16 15:13 03/23/16 15:13 Labs: Microbiology - Last 24 Hours (Table) 03/24/16 08:25 Urine Culture - Final Urine,Clean Catch Assessment and Plan (1) Chronic subdural hematoma Status: Acute Code(s): I62.03 - NONTRAUMATIC CHRONIC SUBDURAL HEMORRHAGE (2) Vestibular neuronitis Status: Acute Code(s): H81.20 - VESTIBULAR NEURONITIS, UNSPECIFIED EAR (3) Gait disorder Status: Acute Code(s): R26.9 - UNSPECIFIED ABNORMALITIES OF GAIT AND MOBILITY (4) Recurrent falls Status: Acute Code(s): R29.6 - REPEATED FALLS Plan: This patient is a 60-year-old female who was admitted with symptoms of increased dizziness and falls. She has a history of a large chronic right- sided subdural hematoma with calcification. This is remain unchanged since previous scanning done in 2010. She was seen in the neurosurgery clinic on 05/2016 for further evaluation of this chronic subdural hematoma. She was recommended no surgical intervention as they felt this may worsen her condition. The CAT scan reveals no significant change in terms of the size or the fact compared to her previous CAT scan done in 2010. We reviewed these results today with the patient. Her aunt who is her power of assistant prosecuting attorney was at bedside and all of the test results were discussed with her as well in detail. Patient does have history of underlying seizure disorder and should be maintained on Depakote and Lamictal. Recent anticonvulsant blood levels both came back therapeutic. Lamictal was 12.9 and Depakote is 83.5. Overall she seems to be doing fairly well. She does have some horizontal nystagmus which may be related to vestibular neuronitis. We will start her on low-dose meclizine and monitor response. The patient has noted improvement since starting on meclizine yesterday. She feels the dizziness has significantly improved on this medication. She does seem to have less horizontal nystagmus on exam today as well. Patient is being evaluated by physical therapy for possible outpatient PT or subacute rehab. Patient underwent routine EEG today which is reviewed and is normal for age. We did review the results with the patient today in detail. Patient is leaning towards going to [facility] for subacute rehab. Her overall prognosis at this time remains very guarded. We will continue close neurological follow-up for the patient. She does seem to be doing better since admission. She has been sitting in chair and seems to be much more stable. We will continue to follow her neurological condition closely during this admission.
[2016-03-26] MEDS: ATORVASTATIN 10 MG TAB PO SCH (20:49)
[2016-03-26] MEDS: lamoTRIgine 100 MG TAB PO SCH (20:49)
[2016-03-27] MEDS: SODIUM CHLORIDE 0.9% 1,000 ML IV SCH (04:42)
--- NOTE | 2016-03-27 08:10 | EEG ---
DATE OF SERVICE: 03/26/2016 INDICATIONS FOR EXAMINATION: This patient is a 60-year-old female with history of large subdural hematoma with new onset of dizziness. Patient also with underlying seizure disorder. AGE: 60Y EEG FINDINGS: A routine 21-channel, awake digital EEG recording was accomplished utilizing the 10 to 20 international system with bipolar and referential montages. The background activity in the most alert resting state consists of a low to medium amplitude, fairly well-developed and well-sustained 7 to 8 Hz activity over the posterior head regions. This posterior rhythm attenuates to eye opening. There is a small amount of low amplitude 18 to 20 Hz beta activity seen maximally over the anterior head regions. Muscle and movement artifact was observed on a few occasions during the tracing. Hyperventilation was not performed. Photic stimulation at flash frequencies of 2 to 30 Hz produced a good symmetrical occipital driving response. No epileptiform discharges were seen. IMPRESSION: This EEG is within normal limits for the patient's age. The EEG failed to reveal any focal, lateralized or epileptiform abnormalities. Clinical correlation is recommended.
[2016-03-27] MEDS: ENOXAPARIN 40 MG/0.4 ML SYRINGE SQ SCH (08:23)
[2016-03-27] MEDS: DIVALPROEX 250 MG TABLET.DR PO SCH (08:23)
[2016-03-27] MEDS: ASPIRIN 81 MG CHEW PO SCH (08:23)
[2016-03-27] MEDS: CHOLECALCIFEROL 1,000 UNIT TAB PO SCH (08:23)
[2016-03-27] MEDS: ASCORBIC ACID 500 MG TAB PO SCH (08:23)
[2016-03-27] MEDS: MECLIZINE 12.5 MG TAB PO SCH ×2 (08:24→22:06)
[2016-03-27] MEDS: METOPROLOL TARTRATE 12.5 MG TAB PO SCH ×2 (08:24→22:06)
[2016-03-27] MEDS: MULTIVITAMINS, THERA 1 EACH TAB PO SCH (08:24)
[2016-03-27] MEDS: lamoTRIgine 25 MG TAB PO SCH (08:24)
[2016-03-27] MEDS: PANTOPRAZOLE 40 MG/10 ML VIAL IV SCH (08:24)
[2016-03-27] MEDS: LORATADINE 10 MG TAB PO SCH (08:24)
--- NOTE | 2016-03-27 10:00 | P.DS ---
Providers Date of admission: 03/23/16 19:38 Expected date of discharge: 03/27/16 Attending physician: Elias Huang Consults: Dr. Lugo, neurology Primary care physician: Haydee Strickland [facility] Course: Final Diagnoses: 1. [Dizziness, possibly lightheadedness or vertigo, vestibular neuronitis significantly improved on IV fluid hydration, meclizine 2. [Chronic left-sided weakness]. 3. [Seizure disorder, maintained on Depakote and Lamictal]. 4. [Hypertension]. 5. [Hyperlipidemia]. 6. [HypoThyroidism]. 7. Chronic subdural hematoma. 8. Gait disorder, Recurrent falls Hospital course:This is a 60-year-old female admitted with dizziness, possible vertigo, vestibular neuronitis in a patient with chronic left-sided weakness, chronic subdural hematoma, seizure disorder and multiple other medical issues. Nystagmus present. Brain CT reported epidural and subdural chronic hematoma, extensive calcification at the cortical convexity of the right cerebral hemisphere mild mild normal pressure-type hydrocephalus, mild mass affect, no acute intracranial abnormality with apparent stable compared to prior MR scan on 02/22/2016 .CT further evaluated by neurology, who reported no change compared to previous computed tomography scan done in 2010 .Evaluated by neurology, Dr. Lugo, with neuro workup completed. Low-dose meclizine initiated along with IV fluid hydration with significant clinical improvement. Echo reporting normal LV function, EF 55-60%, 2 or more wall segments not visualized. EEG completed, reported as normal per neurology Valproic acid level 83.5., Lamictal 12.9. Patient has been cleared by Dr. Lugo, neurology for discharge to [facility] rehab. Condition stable, prognosis guarded. Patient Condition at Discharge: Stable Plan - Discharge Summary Discharge Medication List Ascorbic Acid [Vitamin C] 500 mg PO DAILY 06/15/15 [History] Aspirin 81 mg PO DAILY 06/15/15 [History] Atorvastatin [Lipitor] 10 mg PO HS 06/15/15 [History] Cholecalciferol [Vitamin D3] 1,000 units PO DAILY 06/15/15 [History] Divalproex [Depakote] 250 mg PO DAILY@0900 06/15/15 [History] Divalproex [Depakote] 500 mg PO BID@1400,2100 11/13/15 [History] Loratadine [Claritin] 10 mg PO DAILY 11/13/15 [History] Metoprolol Tartrate [Lopressor] 12.5 mg PO BID 11/13/15 [History] Multivitamins, Thera [Multivitamin] 1 tab PO DAILY 11/13/15 [History] lamoTRIgine [LaMICtal] 50 mg PO DAILY@0900 11/13/15 [History] lamoTRIgine [LaMICtal] 100 mg PO HS 11/13/15 [History] Meclizine [Antivert] 12.5 mg PO BID tab 03/26/16 [Rx] Follow up Appointment(s)/Referral(s): Leni Lugo MD [STAFF PHYSICIAN] - 2 Weeks Fito Cantu MD [STAFF PHYSICIAN] - 3 Days (While at ECF) Haydee Strickland MD [Primary Care Provider] - 1 Week (After DC from ECF) Activity/Diet/Wound Care/Special Instructions: [facility] pre-CERT pending neurology clearance pending Diet: Cardiac assistance with all meals and snacks please Activity: As tolerated CBC, BMP in 3 days Discharge Disposition: TRANSFER TO SNF/ECF
[2016-03-27] MEDS: DIVALPROEX 500 MG TABLET.DR PO SCH ×2 (14:46→22:06)
--- NOTE | 2016-03-27 17:07 | P.PN ---
Subjective Date of service 03/27/2016. Progress note being dictated for Dr. Huang Interval history: This is a 60-year-old female admitted with dizziness, possible vertigo, in a patient with chronic left-sided weakness, chronic subdural hematoma, seizure disorder and multiple other medical issues. Evaluated by neurology with neuro workup in progress. Horizontal nystagmus present. EEG completed, reported as normal per neurology. Continued significant improvement. Ambulating to and from the bathroom with no dizziness or lightheadedness reported. Good diet intake with no nausea or vomiting. Denies chest pain, palpitations or increasing shortness of breath. No seizure activity reported. Valproic acid level 83.5, Lamictal level 13.1 .Awaiting pre- CERT for discharge to [facility]. Objective - Vital Signs Vital signs: Vital Signs Temp 98.1 F 03/27/16 15:00 Pulse 68 03/27/16 15:00 Resp 21 03/27/16 15:00 BP 123/62 03/27/16 15:00 Pulse Ox 94 L 03/27/16 15:00 Intake & Output 03/26/16 03/27/16 03/27/16 18:59 06:59 18:59 Intake Total 480 350 Balance 480 350 Intake: Oral 480 350 Other: # Voids 1 1 2 - Exam PHYSICAL EXAM: VITAL SIGNS: As above GENERAL: [Sitting up in chair, no acute distress] HEENT: [Pupils equal conjunctiva normal.] NECK: [Supple, no JVD] RESPIRATORY EFFORT:[Normal] LUNGS: [Clear, no wheezing, no crackles] CARDIOVASCULAR[regular S1 and S2, no murmurs rubs or gallops, no edema] GI: [Abdomen soft, nontender, positive bowel sounds.] PSYCH: [Alert and oriented -3, mood and affect normal. ] NEURO: [Unchanged, positive nystagmus, tongue midline, speech fluent and appropriate,] - Labs CBC & Chem 7: 03/23/16 15:13 03/23/16 15:13 Assessment and Plan Plan: 1. [Dizziness, possibly lightheadedness or vertigo significantly improved on IV fluid hydration, meclizine 2. [Chronic left-sided weakness]. 3. [Seizure disorder, maintained on Depakote and Lamictal]. 4. [Hypertension]. 5. [Hyperlipidemia]. 6. [HypoThyroidism]. 7. Chronic subdural hematoma. 8. Gait disorder, Recurrent falls Plan: Continue on current medication regime ,monitoring and symptomatic treatment. Pre-CERT for discharge to [facility] pending. Aunt updated at bedside along with patient.Prognosis guarded given multiple complex medical issues. The impression and plan of care has been dictated as directed. : I performed a H&P examination of this patient and discussed the same with the dictator. I agree with the dictator's note. Any additional findings/opinions/ etc. will be noted.
--- NOTE | 2016-03-27 20:55 | P.PN ---
Subjective This patient is a 60-year-old right-handed white female who is followed today for symptoms of dizziness. Patient has a known history of a large right subdural hematoma which has been recently evaluated by her neurosurgeon. She does not require any surgical intervention for this lesion as it has remained stable. Over the last few days she was having increased dizziness which was positional. She was admitted to hospital for further management. She was started on low-dose meclizine for treatment of vestibular component to her dizziness. She seems to be tolerating the meclizine quite well. She also has underlying history of seizure disorder for which she is taking combination of Lamictal and Depakote. We will be checking her Depakote levels and adjusting her dose as needed. She will be scheduled for EEG tomorrow for further assessment as well. The patient is noted improvement with her vertigo symptoms since starting on meclizine yesterday. She does feel the improvement as made her much more stable when she is standing. She is being considered for possible rehab placement. We will recheck her anticonvulsant blood levels tomorrow and adjust as needed. Her anticonvulsant blood levels today indicate her Lamictal to be therapeutic at 12.9. Her Depakote level was also therapeutic at 83.5. Patient also underwent a routine EEG today which was reviewed. EEG is normal for age. There is no evidence of any epileptic seizure focus. We did review all of these test results today with the patient in detail. She is considering subacute rehab at [facility]. At this time we will continue her on low dose meclizine as it has helped. She is to continue on both of her current doses of Lamictal and Depakote. Patient will likely be discharged to the [facility] tomorrow for subacute rehab. She is to continue with all of her current medications. She may follow-up in the outpatient neurology clinic soon after discharge from [facility]. We will continue close neurological follow-up with the patient during this admission. Objective - Vital Signs Vital signs: Vital Signs Temp 98.1 F 03/27/16 15:00 Pulse 68 03/27/16 15:00 Resp 21 03/27/16 15:00 BP 123/62 03/27/16 15:00 Pulse Ox 94 L 03/27/16 15:00 Intake & Output 01/03/27/16 03/28/16 06:59 18:59 06:59 Intake Total 350 Balance 350 Intake: Oral 350 Other: # Voids 1 2 - Exam Physical examination: PHYSICAL EXAMINATION: Patient is resting comfortably in bed. VITAL SIGNS: Blood pressure is [123/62]. Heart rate is [68]. Respiration is [21] . Temperature is [98.1]. HEENT: Head is atraumatic, neck is supple, there were no carotid bruits. CHEST: Lungs are clear to auscultation and percussion. CARDIAC: S1, S2 normal rate and rhythm. There is no murmur. ABDOMEN: Soft and nontender. Bowel sounds are present. EXTREMITIES: There is no pedal edema. Peripheral pulses are present. Neurological examination: Patient's neurological examination is unchanged from yesterday. - Labs CBC & Chem 7: 03/23/16 15:13 03/23/16 15:13 Assessment and Plan (1) Chronic subdural hematoma Status: Acute Code(s): I62.03 - NONTRAUMATIC CHRONIC SUBDURAL HEMORRHAGE (2) Vestibular neuronitis Status: Acute Code(s): H81.20 - VESTIBULAR NEURONITIS, UNSPECIFIED EAR (3) Gait disorder Status: Acute Code(s): R26.9 - UNSPECIFIED ABNORMALITIES OF GAIT AND MOBILITY (4) Recurrent falls Status: Acute Code(s): R29.6 - REPEATED FALLS Plan: This patient is a 60-year-old female who was admitted with symptoms of increased dizziness and falls. She has a history of a large chronic right- sided subdural hematoma with calcification. This is remain unchanged since previous scanning done in 2010. She was seen in the neurosurgery clinic on 05/2016 for further evaluation of this chronic subdural hematoma. She was recommended no surgical intervention as they felt this may worsen her condition. The CAT scan reveals no significant change in terms of the size or the fact compared to her previous CAT scan done in 2010. We reviewed these results today with the patient. Her aunt who is her power of electrical tech was at bedside and all of the test results were discussed with her as well in detail. Patient does have history of underlying seizure disorder and should be maintained on Depakote and Lamictal. Recent anticonvulsant blood levels both came back therapeutic. Lamictal was 12.9 and Depakote is 83.5. Overall she seems to be doing fairly well. She does have some horizontal nystagmus which may be related to vestibular neuronitis. We will start her on low-dose meclizine and monitor response. The patient has noted improvement since starting on meclizine yesterday. She feels the dizziness has significantly improved on this medication. She does seem to have less horizontal nystagmus on exam today as well. Patient is being evaluated by physical therapy for possible outpatient PT or subacute rehab. Patient underwent routine EEG today which is reviewed and is normal for age. We did review the results with the patient today in detail. Patient is leaning towards going to [facility] for subacute rehab. Her overall prognosis at this time remains very guarded. We will continue close neurological follow-up for the patient. She does seem to be doing better since admission. She has been sitting in chair and seems to be much more stable. We will continue to follow her neurological condition closely during this admission. Patient likely to be discharged to [facility] tomorrow for subacute rehab. She may follow-up in the outpatient neurology clinic in 3-4 weeks.
[2016-03-27] MEDS: ATORVASTATIN 10 MG TAB PO SCH (22:06)
[2016-03-27] MEDS: lamoTRIgine 100 MG TAB PO SCH (22:06)
[2016-03-28] MEDS: SODIUM CHLORIDE 0.9% 1,000 ML IV SCH (02:58)
[2016-03-28] MEDS ORDERED: PANTOPRAZOLE 40 MG TABLET PO SCH (07:30)
[2016-03-28 07:43] VITALS: BP 123/71; PULSE 64; RESP 17; TEMP 97.6
[2016-03-28] MEDS: METOPROLOL TARTRATE 12.5 MG TAB PO SCH (08:50)
[2016-03-28] MEDS: MULTIVITAMINS, THERA 1 EACH TAB PO SCH (08:50)
[2016-03-28] MEDS: ASCORBIC ACID 500 MG TAB PO SCH (08:51)
[2016-03-28] MEDS: LORATADINE 10 MG TAB PO SCH (08:51)
[2016-03-28] MEDS: MECLIZINE 12.5 MG TAB PO SCH (08:51)
[2016-03-28] MEDS: CHOLECALCIFEROL 1,000 UNIT TAB PO SCH (08:51)
[2016-03-28] MEDS: DIVALPROEX 250 MG TABLET.DR PO SCH (08:51)
[2016-03-28] MEDS: lamoTRIgine 25 MG TAB PO SCH (08:51)
[2016-03-28] MEDS: ASPIRIN 81 MG CHEW PO SCH (08:51)
[2016-03-28] MEDS: ENOXAPARIN 40 MG/0.4 ML SYRINGE SQ SCH (08:51)
== END 2016-03-28 14:05 ==
LOC: EC 14:59 → 4MS4W 19:38
PROVIDERS: ADMIT Internal Medicine; ATTEND Internal Medicine
DX: H81.20 Vestibular neuronitis, unspecified ear (principal); R56.9 Unspecified convulsions; I10 Essential (primary) hypertension; E78.5 Hyperlipidemia, unspecified; E03.9 Hypothyroidism, unspecified; I62.03 Nontraumatic chronic subdural hemorrhage; D18.1 Lymphangioma, any site; H55.09 Other forms of nystagmus; R26.9 Unspecified abnormalities of gait and mobility; R29.6 Repeated falls; Z79.82 Long term (current) use of aspirin; Z79.899 Other long term (current) drug therapy
CPT/HCPCS: 99285 ×2; 96361 ×2; 36415; 95819; 93005; 93306; 97116 ×2; 97530 ×2; 97163; 97535; 97167; 80164 ×3; 80053; 80175 ×3; 83605; 84484; 85025; 81001; 87086; 71010; 70450; G0378 ×6; J1650 ×5; Q9957; C9113 ×4; 96372; 96374; 96376

== ENCOUNTER 2016-05-26 18:49 | Emergency (ER) | payer BC ==
[2016-05-26 18:58] VITALS: RESP 18
--- NOTE | 2016-05-26 19:19 | ED ---
General Adult HPI - General Chief complaint: Fall Stated complaint: Fall Time Seen by Provider: 05/26/16 18:59 Source: patient, EMS, RN notes reviewed Mode of arrival: EMS Limitations: no limitations - History of Present Illness Initial comments: This is a 60-year-old female presents to the after 2 falls. Patient states she was diagnosed with vertigo in March. Patient states both of her falls were caused by dizziness with movement. Patient describes the dizziness as room spinning dizziness. Patient states the first fall she had was caused by reaching up to pull her shades when she fell to the left side shoulder. Patient states the second fall she had was caused by reaching down to grab her shoes which triggered dizziness and a fall to her back. Patient denies hitting her head or loss of consciousness with either fall. Patient is noticing bruising to the left side neck and to the left shoulder, but patient denies any pain in these areas. Patient states both falls are caused by dizziness and a feeling of being unbalanced. Patient states she has been in rehab for this over the last couple of months and is now using a walker for ambulation. Patient denies feelings of lightheadedness, palpitations, nausea/vomiting, ringing in the ears, neck pain, headache, visual changes or back pain. Patient states she has a lesion on the brain that she has known about for many years and she is following with a neurologist for this. Patient denies any recent medication changes. Patient states she has a history of seizures. Patient denies any recent fever, chills, shortness breath, chest pain, abdominal pain, nausea/vomiting/diarrhea, back pain, numbness, tingling, hematuria, headache, or visual changes, or any other complaints. Patient's aunt who serves as patient's power of mortar mixer operator is present in the room as well. - Related Data Home Medications Medication Instructions Recorded Confirmed Ascorbic Acid [Vitamin C] 500 mg PO DAILY 06/15/15 03/23/16 Aspirin 81 mg PO DAILY 06/15/15 03/23/16 Atorvastatin [Lipitor] 10 mg PO HS 06/15/15 03/23/16 Cholecalciferol [Vitamin D3] 1,000 units PO DAILY 06/15/15 03/23/16 Divalproex [Depakote] 250 mg PO DAILY@0900 06/15/15 03/23/16 Divalproex [Depakote] 500 mg PO BID@1400,2100 11/13/15 03/23/16 Loratadine [Claritin] 10 mg PO DAILY 11/13/15 03/23/16 Metoprolol Tartrate [Lopressor] 12.5 mg PO BID 11/13/15 03/23/16 Multivitamins, Thera [Multivitamin 1 tab PO DAILY 11/13/15 03/23/16 (formulary)] lamoTRIgine [LaMICtal] 50 mg PO DAILY@0900 11/13/15 03/23/16 lamoTRIgine [LaMICtal] 100 mg PO HS 11/13/15 03/23/16 Previous Rx's Medication Instructions Recorded Meclizine [Antivert] 12.5 mg PO BID tab 03/26/16 Allergies Allergy/AdvReac Type Severity Reaction Status Date / Time No Known Allergies Allergy Verified 03/23/16 21:53 Review of Systems ROS Statement: Those systems with pertinent positive or pertinent negative responses have been documented in the HPI. ROS Other: All systems not noted in ROS Statement are negative. 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 Eye: Pupils are equal, round and reactive to light, extra-ocular movements are intact. Mild nystagmus. There is normal conjunctiva bilaterally. No signs of icterus. Ears: TMs pink and pearly with intact cone of light bilaterally. Normal external ear canals Nose: Nasal turbinates pink and moist Mouth and throat: There are moist mucous membranes and no oral lesions. Neck: The neck is supple, there is no tenderness or JVD. No posterior cervical midline tenderness. Cardiovascular: There is a regular rate and rhythm. No murmur, rub or gallop is appreciated. Respiratory: Lungs are clear to auscultation, respirations are non-labored, breath sounds are equal. No wheezes, stridor, rales, or rhonchi. Gastrointestinal: Soft, non-distended, non-tender abdomen without masses or organomegaly noted. There is no rebound or guarding present. No CVA tenderness. Bowel sounds are unremarkable. Musculoskeletal: Normal ROM, no tenderness. Strength 5/5. Sensation intact. Radial pulses equal bilaterally 2+. Neurological: A&O x 3. CN II-XII intact, There are no obvious motor or sensory deficits. Coordination appears grossly intact. Speech is normal. Skin: Patient has ecchymosis to the left side neck just inferior to the jaw. Patient also has ecchymosis to the left sided chest pain under the left arm. These areas are not tender. Skin is warm and dry and no rashes or lesions are noted. Psychiatric: Cooperative, appropriate mood & affect, normal judgment. Limitations: no limitations Course Vital Signs 05/26/16 05/26/16 18:52 21:48 Temperature 97.5 F L 97.6 F Pulse Rate 79 76 Respiratory 18 18 Rate Blood Pressure 173/86 152/73 O2 Sat by Pulse 98 98 Oximetry Medical Decision Making - Medical Decision Making This is a 6-year-old female presents after 2 falls. Patient has a known history of vertigo. On physical exam patient is afebrile in the EC. Patient has no tenderness to the neck, back, left shoulder, neck or chest. Patient has ecchymosis to the left side neck just inferior to the jaw. Patient also has ecchymosis to the left sided chest pain under the left arm. These areas are not tender. There is mild nystagmus on exam. With further questioning patient has been on Antivert for the last 5 weeks twice daily[address] A CT of the brain and C-spine was done and reviewed showing: #1 there is no acute fracture or dislocation evident in the cervical spine. #2 no acute intracranial hemorrhage, chronic extensive changes involving the right cerebral hemisphere as described: Subdural fluid collection on the right with calcification along the dura, mass effect and midline shift seen on previous exam is again noted. Prominence of the left lateral ventricle as compared to the right is again noted, focus of probable lacunar infarct involving the basal ganglia on the left again noted. No new hemorrhage or change in hydrocephalus. Calvarium is intact. Report read by Dr. Baker. An x-ray of the left shoulder was done and reviewed showing: Old traumatic change of the proximal left humerus. Report by Dr. Baker. I discussed the results with patient. Patient confirms that she has had an old shoulder injury. I discussed slow position changes to prevent dizziness. I discussed the patient should continue her Antivert. Discussed that patient should follow- up with her primary care physician and with her neurologist. I discussed return parameters. Patient is still denying any pain. Discussed that patient should follow up with PCP in one to 2 days or return to the [facility] for any worsening symptoms or for any further concerns. Patient and her power of mortar mixer operator were receptive to this plan and patient will be discharged home. I discussed this case with attending physician Dr. Francis who agrees the plan as stated above. Disposition Clinical Impression: Vertigo, Fall Disposition: HOME SELF-CARE Condition: Good Instructions: Fall Prevention for Older Adults (ED), Vertigo (ED) Additional Instructions: Please continue your Antivert. Please be sure to make very slow position changes. Please follow-up with her primary care provider in with neurology in 1- 2 days. Please return to the [facility] for any worsening symptoms or for any further concerns. Referrals: Annemarie Funes III, MD [Primary Care Provider] - 1-2 days Time of Disposition: 21:11
--- NOTE | 2016-05-26 20:45 | CT ---
EXAMINATION TYPE: CT brain cspine wo con DATE OF EXAM: 05/26/2016 8:30 PM COMPARISON: Prior head CT 23 March 2016 HISTORY: Pt states of dizziness. CT DLP: 456.7 mGycm Automated exposure control for dose reduction was used. TECHNIQUE: CT scan of the head and cervical spine are performed without contrast. FINDINGS: The subdural fluid collection on the right with calcification along the dura, mass effect and midline shift seen on previous exam is again noted. Prominence of the left lateral ventricle as compared to the right is again noted, focus of probable lacunar infarct involving the basal ganglia o n the left again noted. No new hemorrhage or change in hydrocephalus. Calvarium is intact. Cervical spine is visualized in its entirety from C1 through upper thoracic levels and demonstrates s atisfactory alignment without evidence of acute fracture or dislocation. Prevertebral soft tissue ap pears within normal limits. Multilevel spondylosis is present, loss of disc height greatest at C6-7 T he C1-C2 articulation is unremarkable. IMPRESSION: 1. There is no acute fracture or dislocation evident in the cervical spine. 2. No acute intracranial hemorrhage, chronic extensive changes involving the right cerebral hemispher e as described..
--- NOTE | 2016-05-26 20:58 | XR ---
Left shoulder HISTORY: Pain and bruising 3 views of the left shoulder Comparison to prior chest x-ray March 2016 LEFT proximal humeral fracture is present. No evident dislocation. Arthropathy present in the left ac romioclavicular joint. IMPRESSION: Old traumatic change of the proximal left humerus.
[2016-05-26 21:49] VITALS: BP 152/73; PULSE 76; TEMP 97.6
== END 2016-05-26 22:07 | disposition home or self-care (01) ==
LOC: EC 18:49
DX: S10.93XA Contusion of unspecified part of neck, initial encounter (principal); S20.212A Contusion of left front wall of thorax, initial encounter; R42 Dizziness and giddiness; I10 Essential (primary) hypertension; Z79.82 Long term (current) use of aspirin; Z79.899 Other long term (current) drug therapy; W19.XXXA Unspecified fall, initial encounter
CPT/HCPCS: 70450; 72125; 99284

== ENCOUNTER 2017-01-24 14:24 | Emergency (ER) | payer BC ==
[2017-01-24 14:35] VITALS: BP 138/76; RESP 16
--- NOTE | 2017-01-24 15:16 | ED ---
General Adult HPI - General Stated complaint: Right Knee Pain Time Seen by Provider: 01/24/17 14:26 Source: patient, EMS Mode of arrival: EMS Limitations: no limitations - History of Present Illness Initial comments: This is a 61-year-old female who arrives via EMS with chief complaint of right knee pain. Patient states that this morning at approximately 10 AM she was walking on a carpeted surface with her walker. She states that her walker hit a ledge and she fell down onto her right side. At the time EMS offered to bring her to the emergency department but she did not have any knee pain at that time. Patient states that when she got up to go for lunch she was unable to ambulate due to knee pain. Patient states that the knee pain is localized to the posterior lateral aspect of right knee and is sharp in nature. Denies fever, chills, chest pain, shortness of breath, abdominal pain, nausea or vomiting, constipation or diarrhea, dysuria or hematuria, numbness or tingling, headache or vision changes. - Related Data Home Medications Medication Instructions Recorded Confirmed Ascorbic Acid [Vitamin C] 500 mg PO DAILY 06/15/15 03/23/16 Aspirin 81 mg PO DAILY 06/15/15 03/23/16 Atorvastatin [Lipitor] 10 mg PO HS 06/15/15 03/23/16 Cholecalciferol [Vitamin D3] 1,000 units PO DAILY 06/15/15 03/23/16 Divalproex [Depakote] 250 mg PO DAILY@0900 06/15/15 03/23/16 Divalproex [Depakote] 500 mg PO BID@1400,2100 11/13/15 03/23/16 Loratadine [Claritin] 10 mg PO DAILY 11/13/15 03/23/16 Metoprolol Tartrate [Lopressor] 12.5 mg PO BID 11/13/15 03/23/16 Multivitamins, Thera [Multivitamin 1 tab PO DAILY 11/13/15 03/23/16 (formulary)] lamoTRIgine [LaMICtal] 50 mg PO DAILY@0900 11/13/15 03/23/16 lamoTRIgine [LaMICtal] 100 mg PO HS 11/13/15 03/23/16 Previous Rx's Medication Instructions Recorded Meclizine [Antivert] 12.5 mg PO BID tab 03/26/16 Allergies Allergy/AdvReac Type Severity Reaction Status Date / Time No Known Allergies Allergy Verified 01/24/17 14:27 Review of Systems ROS Statement: Those systems with pertinent positive or pertinent negative responses have been documented in the HPI. ROS Other: All systems not noted in ROS Statement are negative. 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 Brought in by EMS lying on ED stretcher. HEENT: Head atraumatic, normocephalic. Pupils are equal, round and reactive to light. Extraocular movements intact. Oropharynx moist without erythema or exudate. Neck: Supple. Normal ROM. Cardiovascular: Regular rate and rhythm. No murmurs, rubs or gallops. Chest symmetrical. Respiratory: Lungs clear to auscultation bilaterally. No wheezes, rales or rhonchi. Normal respiratory effort with no use of accessory muscles. Musculoskeletal: Patient has full active range of motion of right knee. There is tenderness to palpation on posterior lateral aspect of knee. Mild pain with varus stress. Sensation is intact. Pulses are 2+ equal and palpable bilaterally. Skin: [place], warm and dry without rashes or lesions. Small abrasion right knee. Neurological: Alert and oriented x3. CN II-XII grossly intact. Speech is fluent and answers are appropriate. No focal neuro deficits. Psychiatric: Normal mood and affect. No overt signs of depression or anxiety noted. Limitations: no limitations Course Vital Signs 01/24/17 14:27 Temperature 98.7 F Pulse Rate 80 Respiratory 16 Rate Blood Pressure 138/76 O2 Sat by Pulse 96 Oximetry Medical Decision Making - Medical Decision Making This is a 61-year-old female who presents to the emergency department via EMS with chief complaint of right knee pain. Mild tenderness on palpation of lateral posterior right knee. X-ray revealed no acute abnormalities. Patient likely suffering from strain or contusion. She will be discharged back [facility]. Will be given follow-up to orthopedics if pain does not resolve. Advised patient to rest, elevate and ice as needed for the next couple of days. Patient is in agreement to the plan and voiced understanding. All questions were answered. - Radiology Data Radiology results: report reviewed X-ray right knee findings: There is no acute fracture/dislocation evident in right knee. Moderate tricompartmental arthrosis is seen as marginal osteophytes greatest of the medial compartment and superior patellar pole and medial joint space narrowing. The overlying soft tissue appears unremarkable. Impression: 1. There is no acute fracture or dislocation in the right knee. 2. Moderate tricompartmental arthrosis. Disposition Clinical Impression: Contusion of right knee Disposition: HOME SELF-CARE Condition: Good Instructions: Knee Pain (ED) Additional Instructions: Please follow up with Dr. Holguin, orthopedics within 1-2 days. Please rest, elevate and ice right knee. May take ibuprofen as needed for pain and inflammation. Please follow up with primary care provider within 1-2 days. Return to emergency department if symptoms should worsen or any concerns arise. Referrals: Annemarie Funes III, MD [Primary Care Provider] - 1-2 days Edgardo Holguin MD [Medical Doctor] - 1-2 days Time of Disposition: 16:07
--- NOTE | 2017-01-24 15:34 | XR ---
EXAMINATION TYPE: XR knee complete RT DATE OF EXAM: 01/24/2017 CLINICAL HISTORY: Posterior right knee pain after fall TECHNIQUE: Three views of the right knee are obtained. COMPARISON: None. FINDINGS: There is no acute fracture/dislocation evident in right knee. Moderate tricompartmental ar throsis is seen as marginal osteophytes greatest of the medial compartment and superior patellar pole an medial joint space narrowing The overlying soft tissue appears unremarkable. IMPRESSION: 1. There is no acute fracture or dislocation in the right knee. 2. Moderate tricompartmental arthrosis.
[2017-01-24 16:50] VITALS: PULSE 83; TEMP 97
== END 2017-01-24 16:50 | disposition home or self-care (01) ==
LOC: EC 14:24
DX: S80.01XA Contusion of right knee, initial encounter (principal); I10 Essential (primary) hypertension; Z79.82 Long term (current) use of aspirin; Z79.899 Other long term (current) drug therapy; W18.09XA Striking against other object with subsequent fall, initial encounter; Y93.01 Activity, walking, marching and hiking
CPT/HCPCS: 99283

== ENCOUNTER → 2017-05-28 | Outpatient (CLI) | payer BC ==
--- NOTE | 2017-05-28 11:25 | CT ---
EXAMINATION TYPE: CT brain wo con DATE OF EXAM: 05/28/2017 HISTORY: Symptomatic epilepsy with complex partial seizures, not intractable without status CT DLP: 1082 mGycm. Automated Exposure Control for Dose Reduction was Utilized. TECHNIQUE: CT scan of the head is performed without contrast. COMPARISON: CT brain May 26, 2016 and older study March 23, 2016 FINDINGS: There is no acute intracranial hemorrhage identified. There is diffuse ventricular and maradiaga lcal prominence consistent with diffuse age-related cerebral atrophy. Asymmetric enlargement of left- sided ventricular system is redemonstrated without significant interval change. There is stable midli ne shift with persistent rim calcified right-sided extra-axial subdural fluid collection not signific antly changed from prior studies may be in utero in etiology. The globes are intact and the visualiz ed sinuses are clear. The calvarium is grossly intact. IMPRESSION: No acute intracranial hemorrhage. No significant change from prior CTs.
== END | disposition home or self-care (01) ==
LOC: RADCTMAIN 08:46
PROVIDERS: ATTEND Psychiatry & Neurology Neurology
DX: G93.0 Cerebral cysts (principal); G40.209 Localization-related (focal) (partial) symptomatic epilepsy and epileptic syndromes with complex partial seizures, not intractable, without status epilepticus
CPT/HCPCS: 70450

== ENCOUNTER 2017-08-12 11:18 | Inpatient (IN) | payer BC ==
[2017-08-12] MEDS ORDERED: SODIUM CHLORIDE 0.9% 500 ML IV STA (11:27)
--- NOTE | 2017-08-12 11:31 | ED ---
General Adult HPI - General Stated complaint: weakness Time Seen by Provider: 08/12/17 11:20 Source: RN notes reviewed - History of Present Illness Initial comments: This is a 61-year-old female with a past medical history significant for seizures and high blood pressure high cholesterol. Patient states for about a week and a half now she getting progressively weaker. Patient states today even with assistance she could not stand by herself and needed 2 people's of 1 to get her up out of her recliner. Patient denies any focal weakness. Patient denies any numbness. Patient denies any injury. Patient denies any recent fall. Patient denies headache patient denies numbness weakness. Patient denies lightheadedness dizziness or near syncopal episode. Patient denies any chest pain palpitations difficulty breathing or shortness of breath. Patient denies abdominal pain patient denies any nausea vomiting or diarrhea. Patient denies any dysuria hematuria urinary frequency. Patient denies any recent fever chills or cough. Patient states she always has some weakness in the left arm and that is unchanged today. - Related Data Home Medications Medication Instructions Recorded Confirmed Ascorbic Acid [Vitamin C] 500 mg PO DAILY 06/15/15 08/12/17 Aspirin 81 mg PO DAILY 06/15/15 08/12/17 Atorvastatin [Lipitor] 10 mg PO HS 06/15/15 08/12/17 Cholecalciferol [Vitamin D3] 1,000 units PO DAILY 06/15/15 08/12/17 Divalproex [Depakote] 250 mg PO DAILY@0900 06/15/15 08/12/17 Divalproex [Depakote] 500 mg PO BID@1400,2100 11/13/15 08/12/17 Loratadine [Claritin] 10 mg PO DAILY 11/13/15 08/12/17 Metoprolol Tartrate [Lopressor] 12.5 mg PO BID 11/13/15 08/12/17 Multivitamins, Thera [Multivitamin 1 tab PO DAILY 11/13/15 08/12/17 (formulary)] lamoTRIgine [LaMICtal] 50 mg PO DAILY@0900 11/13/15 08/12/17 lamoTRIgine [LaMICtal] 100 mg PO HS 11/13/15 08/12/17 Levothyroxine Sodium [Synthroid] 50 mcg PO DAILY 08/12/17 08/12/17 Previous Rx's Medication Instructions Recorded Meclizine [Antivert] 12.5 mg PO BID tab 03/26/16 Allergies Allergy/AdvReac Type Severity Reaction Status Date / Time No Known Allergies Allergy Verified 08/12/17 12:13 Review of Systems ROS Statement: Those systems with pertinent positive or pertinent negative responses have been documented in the HPI. ROS Other: All systems not noted in ROS Statement are negative. 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 Patient is nontoxic and well- hydrated and is in no acute distress ENT: Neck is soft and supple. No significant lymphadenopathy is noted. Oropharynx is clear. Moist mucous membranes. Neck has full range of motion without eliciting any pain. EYES: The sclera were anicteric and conjunctiva were pink and moist. Extraocular movements were intact and pupils were equal round and reactive to light. Eyelids were unremarkable. PULMONARY: Unlabored respirations. Good breath sounds bilaterally. No audible rales rhonchi or wheezing was noted. CARDIOVASCULAR: There is a regular rate and rhythm without any murmurs gallops or rubs. ABDOMEN: Soft and nontender with normal bowel sounds. SKIN: Skin is clear with no lesions or rashes and otherwise unremarkable. NEUROLOGIC: Patient is alert and oriented x3. Cranial nerves II through XII are grossly intact. Patient has normal sensation all 4 times. Patient has a little weakness in the left arm compared to the right but she states this is completely normal.. Normal speech, volume and content. Symmetrical smile. MUSCULOSKELETAL: Normal extremities with adequate strength and full range of motion. LYMPHATICS: No significant lymphadenopathy is noted PSYCHIATRIC: Normal psychiatric evaluation. Course Vital Signs 08/12/17 08/12/17 08/12/17 11:30 12:13 14:17 Temperature 98.7 F 98.3 F 98.2 F Pulse Rate 68 62 72 Respiratory 16 16 18 Rate Blood Pressure 160/95 143/69 166/79 O2 Sat by Pulse 97 97 100 Oximetry Medical Decision Making - Medical Decision Making EKG shows normal sinus rhythm at 65 bpm AL interval is 164 QRS is 84 QT interval 38 QTC is 403. Patient's EKG shows no ST segment elevation or depression or T wave abnormalities are noted. Chest x-ray shows no acute abnormality. Patient's Depakote level is in the toxic range. I spoke with the [facility] admitted the patient wrote admitting orders. - Lab Data Result diagrams: 08/12/17 11:24 08/12/17 11:24 Lab Results 08/12/17 08/12/17 08/12/17 Range/Units 11:24 11:24 11:24 WBC 6.2 (3.8-10.6) k/uL RBC 4.32 (3.80-5.40) m/uL Hgb 13.0 (11.4-16.0) gm/dL Hct 40.2 (34.0-46.0) % MCV 93.2 (80.0-100.0) fL MCH 30.1 (25.0-35.0) pg MCHC 32.3 (31.0-37.0) g/dL RDW 15.9 H (11.5-15.5) % Plt Count 136 L (150-450) k/uL Neutrophils % 49 % Lymphocytes % 39 % Monocytes % 9 % Eosinophils % 1 % Basophils % 0 % Neutrophils # 3.0 (1.3-7.7) k/uL Lymphocytes # 2.4 (1.0-4.8) k/uL Monocytes # 0.5 (0-1.0) k/uL Eosinophils # 0.1 (0-0.7) k/uL Basophils # 0.0 (0-0.2) k/uL PT (9.0-12.0) sec INR (<1.2) APTT (22.0-30.0) sec Sodium 146 H (137-145) mmol/L Potassium 4.7 (3.5-5.1) mmol/L Chloride 105 (98-107) mmol/L Carbon Dioxide 30 (22-30) mmol/L Anion Gap 11 mmol/L BUN 28 H (7-17) mg/dL Creatinine 0.89 (0.52-1.04) mg/dL Est GFR (CKD-EPI)AfAm 81 (>60 ml/min/1.73 sqM) Est GFR (CKD-EPI)NonAf 70 (>60 ml/min/1.73 sqM) Glucose 77 (74-99) mg/dL Plasma Lactic Acid Edgar (0.7-2.0) mmol/L Calcium 9.5 (8.4-10.2) mg/dL Magnesium 1.8 (1.6-2.3) mg/dL Total Bilirubin 0.3 (0.2-1.3) mg/dL AST 25 (14-36) U/L ALT 25 (9-52) U/L Alkaline Phosphatase 41 (38-126) U/L Total Creatine Kinase 24 L (30-135) U/L CK-MB (CK-2) 0.3 (0.0-2.4) ng/mL CK-MB (CK-2) Rel Index 1.3 Troponin I <0.012 (0.000-0.034) ng/mL Total Protein 7.2 (6.3-8.2) g/dL Albumin 4.0 (3.5-5.0) g/dL Urine Color Urine Appearance (Clear) Urine pH (5.0-8.0) Ur Specific [place] (1.001-1.035) Urine Protein (Negative) Urine Glucose (UA) (Negative) Urine Ketones (Negative) Urine Blood (Negative) Urine Nitrite (Negative) Urine Bilirubin (Negative) Urine Urobilinogen (<2.0) mg/dL Ur Leukocyte Esterase (Negative) Valproic Acid ug/mL 08/12/17 08/12/17 08/12/17 Range/Units 11:24 11:35 11:35 WBC (3.8-10.6) k/uL RBC (3.80-5.40) m/uL Hgb (11.4-16.0) gm/dL Hct (34.0-46.0) % MCV (80.0-100.0) fL MCH (25.0-35.0) pg MCHC (31.0-37.0) g/dL RDW (11.5-15.5) % Plt Count (150-450) k/uL Neutrophils % % Lymphocytes % % Monocytes % % Eosinophils % % Basophils % % Neutrophils # (1.3-7.7) k/uL Lymphocytes # (1.0-4.8) k/uL Monocytes # (0-1.0) k/uL Eosinophils # (0-0.7) k/uL Basophils # (0-0.2) k/uL PT 10.6 (9.0-12.0) sec INR 1.1 (<1.2) APTT 23.5 (22.0-30.0) sec Sodium (137-145) mmol/L Potassium (3.5-5.1) mmol/L Chloride (98-107) mmol/L Carbon Dioxide (22-30) mmol/L Anion Gap mmol/L BUN (7-17) mg/dL Creatinine (0.52-1.04) mg/dL Est GFR (CKD-EPI)AfAm (>60 ml/min/1.73 sqM) Est GFR (CKD-EPI)NonAf (>60 ml/min/1.73 sqM) Glucose (74-99) mg/dL Plasma Lactic Acid Edgar 1.4 (0.7-2.0) mmol/L Calcium (8.4-10.2) mg/dL Magnesium (1.6-2.3) mg/dL Total Bilirubin (0.2-1.3) mg/dL AST (14-36) U/L ALT (9-52) U/L Alkaline Phosphatase (38-126) U/L Total Creatine Kinase (30-135) U/L CK-MB (CK-2) (0.0-2.4) ng/mL CK-MB (CK-2) Rel Index Troponin I (0.000-0.034) ng/mL Total Protein (6.3-8.2) g/dL Albumin (3.5-5.0) g/dL Urine Color Urine Appearance (Clear) Urine pH (5.0-8.0) Ur Specific [place] (1.001-1.035) Urine Protein (Negative) Urine Glucose (UA) (Negative) Urine Ketones (Negative) Urine Blood (Negative) Urine Nitrite (Negative) Urine Bilirubin (Negative) Urine Urobilinogen (<2.0) mg/dL Ur Leukocyte Esterase (Negative) Valproic Acid 133.5 H* ug/mL 08/12/17 Range/Units 14:14 WBC (3.8-10.6) k/uL RBC (3.80-5.40) m/uL Hgb (11.4-16.0) gm/dL Hct (34.0-46.0) % MCV (80.0-100.0) fL MCH (25.0-35.0) pg MCHC (31.0-37.0) g/dL RDW (11.5-15.5) % Plt Count (150-450) k/uL Neutrophils % % Lymphocytes % % Monocytes % % Eosinophils % % Basophils % % Neutrophils # (1.3-7.7) k/uL Lymphocytes # (1.0-4.8) k/uL Monocytes # (0-1.0) k/uL Eosinophils # (0-0.7) k/uL Basophils # (0-0.2) k/uL PT (9.0-12.0) sec INR (<1.2) APTT (22.0-30.0) sec Sodium (137-145) mmol/L Potassium (3.5-5.1) mmol/L Chloride (98-107) mmol/L Carbon Dioxide (22-30) mmol/L Anion Gap mmol/L BUN (7-17) mg/dL Creatinine (0.52-1.04) mg/dL Est GFR (CKD-EPI)AfAm (>60 ml/min/1.73 sqM) Est GFR (CKD-EPI)NonAf (>60 ml/min/1.73 sqM) Glucose (74-99) mg/dL Plasma Lactic Acid Edgar (0.7-2.0) mmol/L Calcium (8.4-10.2) mg/dL Magnesium (1.6-2.3) mg/dL Total Bilirubin (0.2-1.3) mg/dL AST (14-36) U/L ALT (9-52) U/L Alkaline Phosphatase (38-126) U/L Total Creatine Kinase (30-135) U/L CK-MB (CK-2) (0.0-2.4) ng/mL CK-MB (CK-2) Rel Index Troponin I (0.000-0.034) ng/mL Total Protein (6.3-8.2) g/dL Albumin (3.5-5.0) g/dL Urine Color Yellow Urine Appearance Clear (Clear) Urine pH 6.0 (5.0-8.0) Ur Specific [place] 1.021 (1.001-1.035) Urine Protein Negative (Negative) Urine Glucose (UA) Negative (Negative) Urine Ketones Trace H (Negative) Urine Blood Negative (Negative) Urine Nitrite Negative (Negative) Urine Bilirubin Negative (Negative) Urine Urobilinogen 2.0 (<2.0) mg/dL Ur Leukocyte Esterase Negative (Negative) Valproic Acid ug/mL Disposition Clinical Impression: Generalized weakness, Valproic acid toxicity Disposition: ADMITTED IP TO THIS HOSP Referrals: Annemarie Funes III, MD [Primary Care Provider] - 1-2 days Time of Disposition: 14:28
[2017-08-12 11:43] LABS: Basophils % (A) 0 %; Eosinophils # (A) 0.1 k/uL (0-0.7); Eosinophils % (A) 1 %; HCT 40.2 % (34.0-46.0); Lymphocytes # (A) 2.4 k/uL (1.0-4.8); Lymphocytes % (A) 39 %; MCH 30.1 pg (25.0-35.0); MCHC 32.3 g/dL (31.0-37.0); MCV 93.2 fL (80.0-100.0); Mean Platelet Volume 7.5; Monocytes # (A) 0.5 k/uL (0-1.0); Monocytes % (A) 9 %; Neutrophils % (A) 49 %; Platelet Count 136 k/uL (150-450); RBC 4.32 m/uL (3.80-5.40); RDW 15.9 % (11.5-15.5); WBC 6.2 k/uL (3.8-10.6)
[2017-08-12 11:54] LABS: Calcium 9.5 mg/dL (8.4-10.2); Magnesium 1.8 mg/dL (1.6-2.3); Potassium 4.7 mmol/L (3.5-5.1); Total Bilirubin 0.3 mg/dL (0.2-1.3); Total Protein 7.2 g/dL (6.3-8.2)
[2017-08-12 11:55] LABS: INR 1.1 (<1.2); Partial Thromboplastin Time 23.5 sec (22.0-30.0); Prothrombin Time 10.6 sec (9.0-12.0)
--- NOTE | 2017-08-12 12:02 | XR ---
EXAMINATION TYPE: XR chest 2V DATE OF EXAM: 08/12/2017 COMPARISON: 03/23/2016 HISTORY: Weakness and seizure TECHNIQUE: Frontal and lateral views of the chest are obtained. FINDINGS: There is no focal air space opacity, pleural effusion, or pneumothorax seen. The cardiac silhouette size is upper limits of normal. The osseous structures are intact. IMPRESSION: No acute cardiopulmonary process.
[2017-08-12 12:10] LABS: Creatine Kinase 24 U/L (30-135)
[2017-08-12 12:23] LABS: Creatine Kinase MB 0.3 ng/mL (0.0-2.4); Troponin I <0.012 ng/mL (0.000-0.034)
[2017-08-12 14:19] LABS: Appearance,Urine Clear (Clear); Bilirubin,Urine Negative (Negative); Blood,Urine Negative (Negative); Color,Urine Yellow; Glucose,Urine (UA) Negative (Negative); Ketones,Urine Trace (Negative); Leukocyte Esterase,Urine Negative (Negative); Nitrite,Urine Negative (Negative); Protein,Urine Negative (Negative); Specific Gravity,Urine 1.021 (1.001-1.035)
[2017-08-12] MEDS ORDERED: SODIUM CHLORIDE 0.9% 1,000 ML IV ONE ×2 (14:28→14:29)
[2017-08-12] MEDS: METOPROLOL TARTRATE 12.5 MG TAB PO SCH (20:18)
[2017-08-12] MEDS: MECLIZINE 12.5 MG TAB PO SCH (20:18)
[2017-08-12] MEDS: lamoTRIgine 100 MG TAB PO SCH (20:18)
[2017-08-12] MEDS: ATORVASTATIN 10 MG TAB PO SCH (20:18)
[2017-08-12] MEDS: HEPARIN SODIUM,PORCINE 5,000 UNIT/ML 1 ML VIAL SQ SCH (23:57)
[2017-08-13] MEDS: LEVOTHYROXINE 50 MCG TAB PO SCH (05:38)
[2017-08-13 07:15] LABS: Glucose,Whole Blood 77 mg/dL (75-99)
[2017-08-13] MEDS: HEPARIN SODIUM,PORCINE 5,000 UNIT/ML 1 ML VIAL SQ SCH ×3 (09:19→23:30)
[2017-08-13] MEDS: lamoTRIgine 25 MG TAB PO SCH (09:20)
[2017-08-13] MEDS: MECLIZINE 12.5 MG TAB PO SCH ×2 (09:20→20:13)
[2017-08-13] MEDS: ASCORBIC ACID 500 MG TAB PO SCH (09:20)
[2017-08-13] MEDS: MULTIVITAMINS, THERA 1 EACH TAB PO SCH (09:20)
[2017-08-13] MEDS: CHOLECALCIFEROL 1,000 UNIT TAB PO SCH (09:20)
[2017-08-13] MEDS: METOPROLOL TARTRATE 12.5 MG TAB PO SCH ×2 (09:20→20:13)
[2017-08-13] MEDS: ASPIRIN 81 MG PO SCH (09:20)
[2017-08-13] MEDS: LORATADINE 10 MG TAB PO SCH (09:20)
--- NOTE | 2017-08-13 11:58 | P.HPIM ---
History of Present Illness This is a pleasant 61 years old female with past medical history of hyperlipidemia hypertension, noma, petite mild seizure, thrombocytopenia, psoriasis, shingles X2, left hemiplegia since , chronic vertigo for the last 4-5 months and she f/u with neurologist as outpt. She has h/o premature forceps brain inj since birthe with persistant left hemiplagia and slurred speech, she lives in [facility]. she uses wheelchair for ambulation most of the time. Patient presents with high valproic acid level at 133.5 in the ED, she has history of petite on seizure and she is on Lamictal 150 mg daily and Depakote 500 mg twice a day plus to 50 mg by mouth daily in the morning. pt was taking depakote for the last two years, after her Dilantin was dc due to gum problems. she presents however yesterday pt noticed her vertigo is significantly worse and she said she had difficulty moving her out of her incliner to her wheelchair by the aides. she denies n/v, no change in mental status, no cp/sob, no change in urine or bowel habits , no fever In the ED this CXR shows no acute cardiopulmonary process. EKG shows normal sinus rhythm at 65 BPM with no significant ST-T changes Review of Systems CONSTITUTIONAL: No fever, no malaise, no fatigue. HEENT: No recent visual problems or hearing problems. Denied any sore throat. CARDIOVASCULAR: No orthopnea, PND, no palpitations, no syncope. PULMONARY: No shortness of breath, no cough, no hemoptysis. GASTROINTESTINAL: No diarrhea, no nausea, no vomiting, no abdominal pain. Normoactive bowel sounds. NEUROLOGICAL: No headaches, no weakness, no numbness. HEMATOLOGICAL: Denies any bleeding or petechiae. GENITOURINARY: Denies any burning micturition, frequency, or urgency. MUSCULOSKELETAL/RHEUMATOLOGICAL: Denies any joint pain, swelling, or any muscle pain. ENDOCRINE: Denies any polyuria or polydipsia. 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 needs assistance to feed seld. needs help holdiong a cup/drinks from straw. unable to stand alone- needs 2 to assist to w/c. stated since wed has intermittent slurred words.hx of falls. wears "cheaters" but needs mag glass to read History of Any Multi-Drug Resistant Organisms: None Reported Past Surgical History: Adenoidectomy, Tonsillectomy Additional Past Surgical History / Comment(s): eye surgery, cataracts removed 2009 Past Anesthesia/Blood Transfusion Reactions: No Reported Reaction Smoking Status: Never smoker - Past Family History Mother Family Medical History: Cancer, Thyroid Disorder Additional Family Medical History / Comment(s): breast cancer. lived to be 100 Father Family Medical History: Cancer, Coronary Artery Disease (CAD) Additional Family Medical History / Comment(s): cabg,bladder cancer. ?dm Medications and Allergies Home Medications Medication Instructions Recorded Confirmed Type Ascorbic Acid [Vitamin C] 500 mg PO DAILY 06/15/15 08/12/17 History Aspirin 81 mg PO DAILY 06/15/15 08/12/17 History Atorvastatin [Lipitor] 10 mg PO HS 06/15/15 08/12/17 History Cholecalciferol [Vitamin D3] 1,000 units PO DAILY 06/15/15 08/12/17 History Divalproex [Depakote] 250 mg PO DAILY@0900 06/15/15 08/12/17 History Divalproex [Depakote] 500 mg PO BID@1400,2100 11/13/15 08/12/17 History Loratadine [Claritin] 10 mg PO DAILY 11/13/15 08/12/17 History Metoprolol Tartrate [Lopressor] 12.5 mg PO BID 11/13/15 08/12/17 History Multivitamins, Thera [Multivitamin 1 tab PO DAILY 11/13/15 08/12/17 History (formulary)] lamoTRIgine [LaMICtal] 50 mg PO DAILY@0900 11/13/15 08/12/17 History lamoTRIgine [LaMICtal] 100 mg PO HS 11/13/15 08/12/17 History Meclizine [Antivert] 12.5 mg PO BID tab 03/26/16 08/12/17 Rx Levothyroxine Sodium [Synthroid] 50 mcg PO DAILY 08/12/17 08/12/17 History Allergies Allergy/AdvReac Type Severity Reaction Status Date / Time No Known Allergies Allergy Verified 08/12/17 12:13 Physical Exam Vitals: Vital Signs Temp Pulse Pulse Resp BP BP Pulse Ox 08/13/17 06:27 98.3 F 61 18 116/69 94 L 08/12/17 23:00 98.0 F 17 152/75 91 L 08/12/17 16:08 98.0 F 67 16 141/81 100 08/12/17 15:33 98.7 F 67 18 156/76 98 08/12/17 14:17 98.2 F 72 18 166/79 100 08/12/17 12:13 98.3 F 62 16 143/69 97 08/12/17 11:30 98.7 F 68 16 160/95 97 Intake and Output 08/12/17 08/13/17 08/13/17 22:59 06:59 14:59 Output Total 415 Balance -415 Output: Urine 415 Straight 415 Other: Voiding Method Bedpan Bedpan # Voids 1 0 Weight 83.5 kg -GENERAL: The patient is alert and oriented x3, not in any acute distress. Well developed, well nourished. slurred speach. HEENT: Pupils are round and equally reacting to light. EOMI. No scleral icterus. No conjunctival pallor. Normocephalic, atraumatic. No pharyngeal erythema. No thyromegaly. CARDIOVASCULAR: S1 and S2 present. No murmurs, rubs, or gallops. PULMONARY: Chest is clear to auscultation, no wheezing or crackles. ABDOMEN: Soft, nontender, nondistended, normoactive bowel sounds. No palpable organomegaly. MUSCULOSKELETAL: No joint swelling or deformity. -EXTREMITIES: No cyanosis, clubbing, or pedal edema. chronic left hemiplagia . her left foot moves in full ROM actively and passively NEUROLOGICAL: Gross neurological examination did not reveal any focal deficits. SKIN: No rashes. Results CBC & Chem 7: 08/12/17 11:24 08/12/17 11:24 Labs: Abnormal Lab Results - Last 24 Hours (Table) 08/12/17 08/12/17 08/12/17 Range/Units 11:24 11:24 11:24 RDW 15.9 H (11.5-15.5) % Plt Count 136 L (150-450) k/uL Sodium 146 H (137-145) mmol/L BUN 28 H (7-17) mg/dL Total Creatine Kinase 24 L (30-135) U/L Urine Ketones (Negative) Valproic Acid ug/mL 08/12/17 08/12/17 Range/Units 11:35 14:14 RDW (11.5-15.5) % Plt Count (150-450) k/uL Sodium (137-145) mmol/L BUN (7-17) mg/dL Total Creatine Kinase (30-135) U/L Urine Ketones Trace H (Negative) Valproic Acid 133.5 H* ug/mL Thrombosis Risk Factor Assmnt - Choose All That Apply Each Factor Represents 1 point: Obesity (BMI >25) Each Risk Factor Represents 2 Points: Age 61-74 years, Patient confined to bed Thrombosis Risk Factor Assessment Total Risk Factor Score: 5 Thrombosis Risk Factor Assessment Level: High Risk Assessment and Plan Plan: - Depakote toxicity, pt is on valproic acid and lamictal. Call neurology consult. Patient was taken Depakote 750 in the morning and 500 in the evening. check level again -History of petite muscle seizure on Lamictal and valproic acid which was held due to toxicity level. Call neurology consults. Follow-up the level -Hypertension continue with metoprolol 12.5 mg twice a day -Hyperlipidemia continue with Lipitor -Hypothyroidism continue with levothyroxine 50 g daily -History of left-sided hemiplegia since , not an active issue. Follow-up as an outpatient DVT prophylaxis heparin GI prophylaxis Pepcid Ask for PT and OT for evaluation
[2017-08-13 12:11] LABS: Glucose,Whole Blood 78 mg/dL (75-99)
[2017-08-13 12:20] LABS: Basophils % (A) 0 %; Eosinophils # (A) 0.1 k/uL (0-0.7); Eosinophils % (A) 1 %; HCT 36.8 % (34.0-46.0); HGB 12.1 gm/dL (11.4-16.0); Lymphocytes % (A) 42 %; MCH 30.8 pg (25.0-35.0); MCHC 32.9 g/dL (31.0-37.0); MCV 93.6 fL (80.0-100.0); Mean Platelet Volume 6.9; Monocytes # (A) 0.6 k/uL (0-1.0); Monocytes % (A) 12 %; Neutrophils # (A) 2.1 k/uL (1.3-7.7); Neutrophils % (A) 43 %; Platelet Count 109 k/uL (150-450); RBC 3.93 m/uL (3.80-5.40); RDW 15.7 % (11.5-15.5); WBC 4.8 k/uL (3.8-10.6)
[2017-08-13 12:40] LABS: Anion Gap 11 mmol/L; Blood Urea Nitrogen 19 mg/dL (7-17); Calcium 9.2 mg/dL (8.4-10.2); Carbon Dioxide 28 mmol/L (22-30); Chloride 106 mmol/L (98-107); Glucose 78 mg/dL (74-99); Potassium 4.2 mmol/L (3.5-5.1); Sodium 145 mmol/L (137-145)
[2017-08-13 12:45] LABS: Valproic Acid (Depakene) 56.3 ug/mL
--- NOTE | 2017-08-13 19:42 | CT ---
EXAMINATION TYPE: CT brain wo con DATE OF EXAM: 08/13/2017 COMPARISON: 05/28/2017 INDICATION: Visual changes. Nystagmus. DLP: 1012.7 mGycm, Automated exposure control for dose reduction was used. CONTRAST: None CT of the brain is performed utilizing 3 mm thick sections through the posterior fossa and 3 mm thick sections through the remaining calvarium. Study is performed within 24 hours of arrival to the hosp [facility]. No abnormal hyperdensity is present to suggest an acute intracranial hemorrhage. No mass lesion is evident. Postsurgical changes very large subdural hygroma is present on the right. Mild midline shift is evide nt. There appears to be calcification along the dural margin. There is left lateral ventricular dilat ation. Significant temporal horn dilatation however is not evident. No acute infarcts are evident. Paranasal sinuses and mastoid air cells within the [id number] are clear. Examination is compared to 05/28/2017. No significant interval changes evident. IMPRESSIONS: 1. Stable postsurgical changes. 2. No acute intracranial changes.
[2017-08-13] MEDS: ATORVASTATIN 10 MG TAB PO SCH (20:13)
[2017-08-13] MEDS: lamoTRIgine 100 MG TAB PO SCH (20:13)
[2017-08-13] MEDS: DIVALPROEX ER 500 MG TAB.ER.24H PO SCH (22:29)
[2017-08-14] MEDS: LEVOTHYROXINE 50 MCG TAB PO SCH (05:13)
[2017-08-14] MEDS: DIVALPROEX ER 500 MG TAB.ER.24H PO SCH ×2 (08:21→21:02)
[2017-08-14] MEDS: ASCORBIC ACID 500 MG TAB PO SCH (08:21)
[2017-08-14] MEDS: METOPROLOL TARTRATE 12.5 MG TAB PO SCH ×2 (08:21→21:01)
[2017-08-14] MEDS: ASPIRIN 81 MG PO SCH (08:21)
[2017-08-14] MEDS: HEPARIN SODIUM,PORCINE 5,000 UNIT/ML 1 ML VIAL SQ SCH ×3 (08:21→23:42)
[2017-08-14] MEDS: LORATADINE 10 MG TAB PO SCH (08:21)
[2017-08-14] MEDS: lamoTRIgine 25 MG TAB PO SCH (08:21)
[2017-08-14] MEDS: MULTIVITAMINS, THERA 1 EACH TAB PO SCH (08:21)
[2017-08-14] MEDS: CHOLECALCIFEROL 1,000 UNIT TAB PO SCH (08:21)
[2017-08-14] MEDS: MECLIZINE 12.5 MG TAB PO SCH ×2 (08:21→21:01)
[2017-08-14 10:53] LABS: Basophils % (A) 1 %; Eosinophils # (A) 0.1 k/uL (0-0.7); Eosinophils % (A) 2 %; HCT 39.4 % (34.0-46.0); HGB 12.8 gm/dL (11.4-16.0); Lymphocytes # (A) 2.6 k/uL (1.0-4.8); Lymphocytes % (A) 42 %; MCH 30.2 pg (25.0-35.0); MCHC 32.4 g/dL (31.0-37.0); Mean Platelet Volume 7.3; Monocytes # (A) 0.6 k/uL (0-1.0); Monocytes % (A) 9 %; Neutrophils # (A) 2.7 k/uL (1.3-7.7); Neutrophils % (A) 44 %; Platelet Count 117 k/uL (150-450); RBC 4.24 m/uL (3.80-5.40)
--- NOTE | 2017-08-14 10:54 | P.PN ---
Subjective This is a pleasant 61 years old female with past medical history of hyperlipidemia hypertension, petite mild seizure, thrombocytopenia, psoriasis, shingles X2, left hemiplegia since , chronic vertigo for the last 4-5 months and she f/u with neurologist as outpt. She has h/o premature forceps brain inj since with persistent left hemiplagia and slurred speech, she lives in [facility]. she uses wheelchair for ambulation most of the time. Patient presents with high valproic acid level at 133.5 in the ED, she has history of petite on seizure and she is on Lamictal 150 mg daily and Depakote 500 mg twice a day plus to 50 mg by mouth daily in the morning. pt was taking depakote for the last two years, after her Dilantin was dc due to gum problems. she presents however yesterday pt noticed her vertigo is significantly worse and she said she had difficulty moving her out of her incliner to her wheelchair by the aides. she denies n/v, no change in mental status, no cp/sob, no change in urine or bowel habits , no fever In the ED this CXR shows no acute cardiopulmonary process. EKG shows normal sinus rhythm at [address] with no significant [address]-T changes On 08/14/2017 Patient feels better regarding her dizziness.Room spinning sensation so most likely this is only dizziness withirrigation. CT of the brain shows no acute process. No seizure. Her valproic acid came back at 56.3 which is within therapeutic level. Patient was restarted on Depakote 500 twice a day instead of 750 in the morning and 500 in the evening. She still have chronic weakness on her left side. Patient states at baseline she uses a wheelchair for the last 4 or 5 months. Before that she used to use a walker and she could walk only for a few steps for example only to the door of the room Objective - Vital Signs Vital signs: Vital Signs Temp 96.8 F L 08/14/17 06:16 Pulse 56 L 08/14/17 06:16 Resp 14 08/14/17 06:16 BP 148/70 08/14/17 06:16 Pulse Ox 99 08/14/17 06:16 Intake & Output 08/13/17 08/14/17 08/14/17 18:59 06:59 18:59 Intake Total 400 Output Total 350 Balance 50 Intake: IV 400 Sodium Chloride 0.9% 1, 400 000 ml @ 100 mls/hr IV . Q10H ONE Rx#:[id number] Output: Urine 350 Other: # Voids 1 2 - Exam -GENERAL: The patient is alert and oriented x3, not in any acute distress. Well developed, well nourished. slurred speach. HEENT: Pupils are round and equally reacting to light. EOMI. No scleral icterus. No conjunctival pallor. Normocephalic, atraumatic. No pharyngeal erythema. No thyromegaly. CARDIOVASCULAR: S1 and S2 present. No murmurs, rubs, or gallops. PULMONARY: Chest is clear to auscultation, no wheezing or crackles. ABDOMEN: Soft, nontender, nondistended, normoactive bowel sounds. No palpable organomegaly. MUSCULOSKELETAL: No joint swelling or deformity. -EXTREMITIES: No cyanosis, clubbing, or pedal edema. . her left foot moves in full ROM actively and passively NEUROLOGICAL: Gross neurological examination did not reveal any focal deficits. chronic left hemiplagia SKIN: No rashes. - Labs CBC & Chem 7: 08/13/17 11:55 08/13/17 11:55 Labs: Abnormal Lab Results - Last 24 Hours (Table) 08/13/17 08/13/17 Range/Units 11:55 11:55 RDW 15.7 H (11.5-15.5) % Plt Count 109 L (150-450) k/uL BUN 19 H (7-17) mg/dL Assessment and Plan Plan: - Depakote toxicity, pt is on valproic acid and lamictal. Patient was taken Depakote 750 in the morning and 500 in the evening. check level again -History of petite muscle seizure on Lamictal and valproic acid which was held due to toxicity level. Call neurology consults. Follow-up the level 50+. A shunt was restarted on Depakote 500 mg twice a day. Patient blurred vision is improved to normal and her dizziness is improved. She still complains from chronic left hemiplegia -Hypertension continue with metoprolol 12.5 mg twice a day -Hyperlipidemia continue with Lipitor -Hypothyroidism continue with levothyroxine 50 g daily -History of left-sided hemiplegia since , not an active issue. Follow-up as an outpatient DVT prophylaxis heparin GI prophylaxis Pepcid Ask for PT and OT for evaluation: They recommended subacute rehab area patient needs preauthorization, she will be discharged tomorrow to rehab if she got cleared for discharge
--- NOTE | 2017-08-14 11:13 | CONS ---
CONSULTATION DATE OF CONSULTATION: 08/13/2017. CHIEF COMPLAINT: Depakote toxicity. HISTORY OF PRESENT ILLNESS: Mrs. Spears is a pleasant 61-year-old female who is being evaluated today on 08/13/2017 by the neurology service per the request of Dr. Vieyra for Depakote toxicity. The patient was brought into [facility] Emergency Room with complaints of altered mental status. She does have history of seizure disorder and she is on Depakote 500 mg in the morning, 250 mg in the afternoon and 500 mg at bedtime. She is also on Lamictal. In the emergency room, her Depakote level was found to be 133.5. Her Depakote was held and she was admitted for further monitoring. She did have a repeat level today which was within the therapeutic window at 56.3. The patient states that her last seizure was approximately 6 weeks ago. Her basic metabolic profile was normal. Her CBC showed thrombocytopenia at 109,000. At the time of my evaluation, the patient is resting in her bed and appears to be in no acute distress. She was complaining of dizziness earlier but this has resolved. PAST MEDICAL HISTORY: Dyslipidemia, hypertension, seizure disorder, psoriasis, history of shingles, history of tonsillectomy and adenoidectomy, history of cataract surgeries. SOCIAL HISTORY: She denies any tobacco, alcohol or drug use. FAMILY HISTORY: Positive for cancer and heart disease. HOME MEDICATIONS: Reviewed in the chart. ALLERGIES: No known drug allergies. REVIEW OF SYSTEMS: CONSTITUTIONAL: Positive for fatigue. EYES: Positive for chronic diminished vision. ENT: As mentioned above. CARDIOVASCULAR: Negative. RESPIRATORY: Negative. NEUROLOGICAL: As mentioned above. GASTROINTESTINAL: Negative. GENITOURINARY: Negative. PSYCHIATRIC: Negative. DERMATOLOGICAL: Negative. MUSCULOSKELETAL: Negative. PHYSICAL EXAM: Vital signs show a temperature of 98.2, pulse 70, respirations 16, blood pressure 103/56. GENERAL APPEARANCE: The patient is a well-developed female, who appears to be in no acute distress. HEENT: Normocephalic, atraumatic. Extraocular muscle testing showed significant nystagmus. saccodic eye movement is noticed. Neck is supple with no masses felt. CARDIOVASCULAR: Regular rate and rhythm. ABDOMEN: Nontender, nondistended. Extremities showed no edema or clubbing. NEUROLOGICAL EXAM: The patient is awake and oriented x3. Speech and language are normal. Strength is full in all 4 extremities. Sensory exam was normal to light touch in all 4 extremities. A resting tremor is noticed in the right upper extremity. Mild cogwheel rigidity is seen in bilateral upper extremities. No facial asymmetry is seen on cranial nerve testing but nystagmus is noticed as mentioned above. IMPRESSION: 1. Depakote toxicity. 2. History of seizure disorder. 3. Resting tremors. 4. Rigidity. RECOMMENDATION: The patient's repeat Depakote level is in the therapeutic window. I will restart her Depakote at a lower dose of 500 mg every 12 hours. An EEG has been ordered. Regarding her nystagmus, it is unclear if this is new or chronic. I will order a CT scan of the brain. The patient was also noticed to have cogwheel rigidity and a resting tremor. There is concerns for parkinsonism. She will need further outpatient workup for this. I will also order a repeat Depakote level for the morning. Continue the rest of your current workup and management. I will continue to follow with you. Further recommendations to follow. Thank you for allowing me to participate in the care of your patient. If you have any questions, please feel free to contact me. TIMOTHY / IJN: [id number] / MURIEL
[2017-08-14 11:37] LABS: Albumin 3.7 g/dL (3.5-5.0); Bilirubin, Delta 0.3 mg/dL (0.0-0.2); Total Bilirubin 0.3 mg/dL (0.2-1.3); Total Protein 6.6 g/dL (6.3-8.2)
[2017-08-14 11:42] LABS: Valproic Acid (Depakene) 55.9 ug/mL
--- NOTE | 2017-08-14 18:52 | EEG ---
ELECTROENCEPHALOGRAM REPORT DATE OF SERVICE: 08/14/2017. REASON FOR TESTING: History of seizures. CURRENT ANTIEPILEPTIC MEDICATIONS: Lamictal and Depakote. DESCRIPTION OF THE PROCEDURE: This EEG was performed using a 21 channel digital electroencephalograph, following international 10-20 system. DESCRIPTION OF THE RECORDING: From the beginning of the tracing, with patient's eyes closed, the background rhythm was mostly consisting of 8-9 Hz alpha frequency in the posterior occipital leads. No obvious asymmetry is seen. Photic stimulation was performed with a minimal driving response seen. No pathological waves were elicited. Hyperventilation was not performed. Occasional movement and muscle artifacts are seen. Later in the tracing, the patient does reach stage II of sleep and occasional sleep spindles are seen. No epileptiform discharges were seen. Rare sharp wave activity is noticed. Her EKG lead showed a bradycardic rate with normal rhythm. INTERPRETATION: This asleep and awake EEG is abnormal due to the presence of rare sharp wave activity, which could be consistent with a reduced seizure threshold. No generalized epileptiform discharges were seen. Clinical correlation is recommended. MMGIOVANNI / SIOMARAN: [id number] /
--- NOTE | 2017-08-14 19:47 | P.PN ---
Subjective Progress Note Date: 08/14/17 Principal diagnosis: Seizure, Depakote Toxicity Neurology is following a 61-year-old female for Depakote toxicity. She was brought to the ED complaints of altered mental status. Patient does have known seizure disorder and is on Depakote 500 mg twice a day at this time. On presentation patient was using Depakote 500 mg in the morning, 250 in the afternoon and 500 at bedtime. She is also on Lamictal. In the ED Depakote level was found to be significantly elevated. Depakote was held and patient was admitted for further monitoring. Patient did have repeat level on 08/13 and and both are within therapeutic window. Patient admits that she has returned to baseline with regard to her neurological status, vision changes. Patient's EEG was positive for reduced seizure threshold. CT brain was completed as well. On contact, the patient was AOx3 resting in bed in no acute distress. Objective - Vital Signs Vital signs: Vital Signs Temp 96.8 F L 08/14/17 15:30 Pulse 91 08/14/17 15:30 Resp 18 08/14/17 15:30 BP 151/77 08/14/17 15:30 Pulse Ox 96 08/14/17 15:30 Intake & Output 08/14/17 08/14/17 08/15/17 06:59 18:59 06:59 Other: # Voids 2 0 # Bowel Movements 0 - Exam General appearance: Alert & oriented x3, no apparent distress. Head: Atraumatic, normocephalic, normal inspection Eyes: Well appearance, PERRLA, EOMI. Absent scleral icterus, conjunctival injection, periorbital swelling. Ear, nose and throat: Normal exam, mucous membranes moist Neck: Normal inspection, absent tenderness, lymphadenopathy. Respiratory: No increased work of breathing Cardiovascular: Regular rate, rhythm GI/abdominal: Normal bowel sounds, nondistended, no tenderness, no guarding, no rebound, no rigidity. Extremities: All range of motion, normal capillary refill, no tenderness, pedal edema joint swelling, calf tenderness. Neurological: cranial nerves II through XII intact no lateralizing weakness no seizure activity noted on physical exam no pronator drift and no nystagmus. strength is full in all 4 extremities Sensation is normal in all 4 extremities Noted right upper extremity resting tremor, mild cogwheel rigidity in the bilateral upper extremities. No facial asymmetry [place] cranial nerve testing. Nystagmus is noted. Psychological: Mood and affect appropriate for setting. - Labs CBC & Chem 7: 08/14/17 10:31 08/13/17 11:55 Labs: Abnormal Lab Results - Last 24 Hours (Table) 08/14/17 08/14/17 Range/Units 10:31 10:31 RDW 16.0 H (11.5-15.5) % Plt Count 117 L (150-450) k/uL Delta Bilirubin 0.3 H (0.0-0.2) mg/dL Assessment and Plan (1) Generalized weakness Current Visit: Yes Status: Acute Code(s): R53.1 - WEAKNESS SNOMED Code(s) : 88555008 (2) Valproic acid toxicity Current Visit: Yes Status: Acute Code(s): T42.6X1A - POISONING BY OTH ANTIEPLPTC AND SED-HYPNTC DRUGS, ACC, INIT SNOMED Code(s): 386076840 (3) Tremor Current Visit: Yes Status: Acute Code(s): R25.1 - TREMOR, UNSPECIFIED SNOMED Code(s): 55826164 Plan: 1. Depakote toxicity: Patient does have repeat Depakote level testing within therapeutic window 2. Patient's vision changes and other neurological symptoms have returned to baseline. We'll monitor for any neurological changes throughout the night. If no changes take place, patient can be cleared for discharge from a neurological standpoint at the patient's current dose and frequency related to her Depakote 500 mg twice a day. 2. Generalized weakness: Patient does appear to be weak and visually debilitated at this time. Continue to treat underlying causes, increased strength, range of motion and flexibility consistent with plan of care, defer to hospitalist/primary care provider for further recommendations. 3. Resting tremor: Resting tremor was noted on physical exam as well as cogwheel rigidity. Patient can have further workup for this in the outpatient setting. Status: Patient can be cleared for discharge from a neurological standpoint in the morning on 08/15/17 if no further symptoms or neurological changes occur. If patient has any further neurological changes during the evening/night of 08/14/17 , contact neurology. Neurology will continue to follow on an as-needed basis with patient to be notified to follow up in our office within 10-14 days post discharge. I have discussed the plan of care with the physician prior to implementation and he agrees with the plan as implemented.
[2017-08-14] MEDS: lamoTRIgine 100 MG TAB PO SCH (21:00)
[2017-08-14] MEDS: ATORVASTATIN 10 MG TAB PO SCH (21:00)
[2017-08-15] MEDS: LEVOTHYROXINE 50 MCG TAB PO SCH (06:09)
[2017-08-15] MEDS: HEPARIN SODIUM,PORCINE 5,000 UNIT/ML 1 ML VIAL SQ SCH ×2 (08:18→16:43)
[2017-08-15] MEDS: ASCORBIC ACID 500 MG TAB PO SCH (08:18)
[2017-08-15] MEDS: lamoTRIgine 25 MG TAB PO SCH (08:18)
[2017-08-15] MEDS: DIVALPROEX ER 500 MG TAB.ER.24H PO SCH ×2 (08:18→20:45)
[2017-08-15] MEDS: ASPIRIN 81 MG PO SCH (08:18)
[2017-08-15] MEDS: CHOLECALCIFEROL 1,000 UNIT TAB PO SCH (08:18)
[2017-08-15] MEDS: METOPROLOL TARTRATE 12.5 MG TAB PO SCH ×2 (08:19→20:45)
[2017-08-15] MEDS: MECLIZINE 12.5 MG TAB PO SCH ×2 (08:19→20:45)
[2017-08-15] MEDS: LORATADINE 10 MG TAB PO SCH (08:19)
[2017-08-15 09:34] LABS: Basophils % (A) 1 %; Eosinophils # (A) 0.2 k/uL (0-0.7); Eosinophils % (A) 3 %; HCT 39.7 % (34.0-46.0); HGB 12.8 gm/dL (11.4-16.0); Lymphocytes # (A) 2.5 k/uL (1.0-4.8); Lymphocytes % (A) 45 %; MCH 30.3 pg (25.0-35.0); MCHC 32.3 g/dL (31.0-37.0); MCV 93.9 fL (80.0-100.0); Monocytes # (A) 0.3 k/uL (0-1.0); Monocytes % (A) 5 %; Neutrophils # (A) 2.5 k/uL (1.3-7.7); Neutrophils % (A) 44 %; Platelet Count 118 k/uL (150-450); RBC 4.22 m/uL (3.80-5.40); WBC 5.7 k/uL (3.8-10.6)
[2017-08-15 09:44] LABS: Albumin 3.7 g/dL (3.5-5.0); Bilirubin, Delta 0.2 mg/dL (0.0-0.2); Bilirubin,Unconjugated 0.1 mg/dL (0.0-1.1); Total Bilirubin 0.3 mg/dL (0.2-1.3); Total Protein 6.6 g/dL (6.3-8.2)
--- NOTE | 2017-08-15 12:18 | P.DS ---
Providers Date of admission: 08/12/17 14:28 Attending physician: Dat Vieyra Consults: 08/12/17 17:42 Consult Physician Stat Consulting Provider: Elidia Lopez Consult Reason/Comments: Known to patient, Depakote Toxicity Do you want consulting provider notified?: Yes Primary care physician: Annemarie [facility] Course: This is a pleasant 61 years old female with past medical history of hyperlipidemia hypertension, noma, petite mild seizure, thrombocytopenia, psoriasis, shingles X2, left hemiplegia since , chronic vertigo for the last 4-5 months and she f/u with neurologist as outpt. She has h/o premature forceps brain inj since birthe with persistant left hemiplagia and slurred speech, she lives [facility]. she uses wheelchair for ambulation most of the time. Patient presents with high valproic acid level at 133.5 in the ED, patient was diagnosed with Depakote toxicity causing her dizziness and blurred vision and weakness, patient Depakote was held her level came down to 56.3 and 55.9. Her Depakote was restarted at a lower dose at 500 mg twice a day. Neurologist evaluated the patient and his recommendation are followed. CT of the head shows no acute changes. EEG was done and was not concerning. Patient signs and symptoms of dizziness, blurred vision and weakness are resolved on the day of the discharge. Patient was cleared by neurology for discharge. Physical therapy evaluation recommended subacute rehab. Patient has resting tremor in the neurologist recommended outpatient workup Patient was informed with the problems and treatment plan and she verbalized understanding and acceptance Patient was instructed to follow-up with her neurologist in 2 weeks, she verbalized understanding and states that she will call and make that appointment as instructed Also patient instructed to follow with PCP in one week and she agrees Patient looks his stable and can be discharged to [facility], however she needs follow- up as an outpatient Discharge exam -GENERAL: The patient is alert and oriented x3, not in any acute distress. Well developed, well nourished. slurred speach, which is chronic. HEENT: Pupils are round and equally reacting to light. EOMI. No scleral icterus. No conjunctival pallor. Normocephalic, atraumatic. No pharyngeal erythema. No thyromegaly. CARDIOVASCULAR: S1 and S2 present. No murmurs, rubs, or gallops. PULMONARY: Chest is clear to auscultation, no wheezing or crackles. ABDOMEN: Soft, nontender, nondistended, normoactive bowel sounds. No palpable organomegaly. MUSCULOSKELETAL: No joint swelling or deformity. -EXTREMITIES: No cyanosis, clubbing, or pedal edema. chronic left hemiplagia . her left foot moves in full ROM actively and passively -Right hand resting tremor NEUROLOGICAL: Gross neurological examination did not reveal any focal deficits. SKIN: No rashes. Time spent more than 35 minutes Patient Condition at Discharge: Good Plan - Discharge Summary Discharge Rx Participant: No New Discharge Prescriptions: New Divalproex ER [Depakote ER] 500 mg PO BID tab.er.24h Continue Levothyroxine Sodium [Synthroid] 50 mcg PO DAILY Discontinued Divalproex [Depakote] 500 mg PO BID No Action Atorvastatin [Lipitor] 10 mg PO HS Cholecalciferol [Vitamin D3] 1,000 units PO DAILY Aspirin 81 mg PO DAILY Ascorbic Acid [Vitamin C] 500 mg PO DAILY Loratadine [Claritin] 10 mg PO DAILY Multivitamins, Thera [Multivitamin (formulary)] 1 tab PO DAILY Metoprolol Tartrate [Lopressor] 12.5 mg PO BID lamoTRIgine [LaMICtal] 50 mg PO DAILY@0900 lamoTRIgine [LaMICtal] 100 mg PO HS Meclizine [Antivert] 12.5 mg PO BID tab Discharge Medication List Ascorbic Acid [Vitamin C] 500 mg PO DAILY 06/15/15 [History] Aspirin 81 mg PO DAILY 06/15/15 [History] Atorvastatin [Lipitor] 10 mg PO HS 06/15/15 [History] Cholecalciferol [Vitamin D3] 1,000 units PO DAILY 06/15/15 [History] Loratadine [Claritin] 10 mg PO DAILY 11/13/15 [History] Metoprolol Tartrate [Lopressor] 12.5 mg PO BID 11/13/15 [History] Multivitamins, Thera [Multivitamin (formulary)] 1 tab PO DAILY 11/13/15 [History ] lamoTRIgine [LaMICtal] 50 mg PO DAILY@0900 11/13/15 [History] lamoTRIgine [LaMICtal] 100 mg PO HS 11/13/15 [History] Meclizine [Antivert] 12.5 mg PO BID tab 03/26/16 [Rx] Levothyroxine Sodium [Synthroid] 50 mcg PO DAILY 08/12/17 [History] Divalproex ER [Depakote ER] 500 mg PO BID tab.er.24h 08/15/17 [Rx] Follow up Appointment(s)/Referral(s): Annemarie Funes III, MD [Primary Care Provider] - 1-2 days Elidia Lopez MD [STAFF PHYSICIAN] - 2 Weeks Activity/Diet/Wound Care/Special Instructions: Diet: Continue with cardiac diet Activity as tolerated Discharge Disposition: TRANSFER TO SNF/ECF
[2017-08-15] MEDS: MULTIVITAMINS, THERA 1 EACH TAB PO SCH (12:52)
[2017-08-15] MEDS: lamoTRIgine 100 MG TAB PO SCH (20:45)
[2017-08-15] MEDS: ATORVASTATIN 10 MG TAB PO SCH (20:46)
[2017-08-16] MEDS: HEPARIN SODIUM,PORCINE 5,000 UNIT/ML 1 ML VIAL SQ SCH ×3 (00:05→15:54)
[2017-08-16] MEDS: LEVOTHYROXINE 50 MCG TAB PO SCH (06:13)
[2017-08-16] MEDS: lamoTRIgine 25 MG TAB PO SCH (08:05)
[2017-08-16] MEDS: DIVALPROEX ER 500 MG TAB.ER.24H PO SCH (08:05)
[2017-08-16] MEDS: CHOLECALCIFEROL 1,000 UNIT TAB PO SCH (08:05)
[2017-08-16] MEDS: ASPIRIN 81 MG PO SCH (08:05)
[2017-08-16] MEDS: ASCORBIC ACID 500 MG TAB PO SCH (08:05)
[2017-08-16] MEDS: MECLIZINE 12.5 MG TAB PO SCH (08:06)
[2017-08-16] MEDS: LORATADINE 10 MG TAB PO SCH (08:06)
[2017-08-16] MEDS: METOPROLOL TARTRATE 12.5 MG TAB PO SCH (08:06)
[2017-08-16] MEDS: MULTIVITAMINS, THERA 1 EACH TAB PO SCH (12:39)
--- NOTE | 2017-08-16 14:32 | P.DS ---
Providers Date of admission: 08/12/17 14:28 Attending physician: Dat Vieyra Consults: 08/12/17 17:42 Consult Physician Stat Consulting Provider: Elidia Lopez Consult Reason/Comments: Known to patient, Depakote Toxicity Do you want consulting provider notified?: Yes Primary care physician: Annemarie [facility] Course: This is a pleasant 61 years old female with past medical history of hyperlipidemia hypertension, noma, petite mild seizure, thrombocytopenia, psoriasis, shingles X2, left hemiplegia since , chronic vertigo for the last 4-5 months and she f/u with neurologist as outpt. She has h/o premature forceps brain inj since birthe with persistant left hemiplagia and slurred speech, [facility] she uses wheelchair for ambulation most of the time. Patient presents with high valproic acid level at 133.5 in the ED, patient was diagnosed with Depakote toxicity causing her dizziness and blurred vision and weakness, patient Depakote was held her level came down to 56.3 and 55.9. Her Depakote was restarted at a lower dose at 500 mg twice a day. Neurologist evaluated the patient and his recommendation are followed. CT of the head shows no acute changes. EEG was done and was not concerning. Patient signs and symptoms of dizziness, blurred vision and weakness are resolved on the day of the discharge. Patient was cleared by neurology for discharge. Physical therapy evaluation recommended subacute rehab. Patient has resting tremor in the neurologist recommended outpatient workup Patient was informed with the problems and treatment plan and she verbalized understanding and acceptance Patient was instructed to follow-up with her neurologist in 2 weeks, she verbalized understanding and states that she will call and make that appointment as instructed Also patient instructed to follow with PCP in one week and she agrees Patient looks his stable and can be discharged to [facility], however she needs follow- up as an outpatient Patient supposed to be discharged yesterday, it was held due to insurance reasons. Patient is continued to be stable and can be discharged today Discharge exam -GENERAL: The patient is alert and oriented x3, not in any acute distress. Well developed, well nourished. slurred speach, which is chronic. HEENT: Pupils are round and equally reacting to light. EOMI. No scleral icterus. No conjunctival pallor. Normocephalic, atraumatic. No pharyngeal erythema. No thyromegaly. CARDIOVASCULAR: S1 and S2 present. No murmurs, rubs, or gallops. PULMONARY: Chest is clear to auscultation, no wheezing or crackles. ABDOMEN: Soft, nontender, nondistended, normoactive bowel sounds. No palpable organomegaly. MUSCULOSKELETAL: No joint swelling or deformity. -EXTREMITIES: No cyanosis, clubbing, or pedal edema. chronic left hemiplagia . her left foot moves in full ROM actively and passively -Right hand resting tremor NEUROLOGICAL: Gross neurological examination did not reveal any focal deficits. SKIN: No rashes. Time spent more than 35 minutes Patient Condition at Discharge: Good Plan - Discharge Summary Discharge Rx Participant: No New Discharge Prescriptions: New Divalproex ER [Depakote ER] 500 mg PO BID tab.er.24h Continue Atorvastatin [Lipitor] 10 mg PO HS Cholecalciferol [Vitamin D3] 1,000 units PO DAILY Aspirin 81 mg PO DAILY Ascorbic Acid [Vitamin C] 500 mg PO DAILY Loratadine [Claritin] 10 mg PO DAILY Multivitamins, Thera [Multivitamin (formulary)] 1 tab PO DAILY Metoprolol Tartrate [Lopressor] 12.5 mg PO BID lamoTRIgine [LaMICtal] 50 mg PO DAILY@0900 lamoTRIgine [LaMICtal] 100 mg PO HS Meclizine [Antivert] 12.5 mg PO BID tab Levothyroxine Sodium [Synthroid] 50 mcg PO DAILY Discontinued Divalproex [Depakote] 500 mg PO BID Discharge Medication List Ascorbic Acid [Vitamin C] 500 mg PO DAILY 06/15/15 [History] Aspirin 81 mg PO DAILY 06/15/15 [History] Atorvastatin [Lipitor] 10 mg PO HS 06/15/15 [History] Cholecalciferol [Vitamin D3] 1,000 units PO DAILY 06/15/15 [History] Loratadine [Claritin] 10 mg PO DAILY 11/13/15 [History] Metoprolol Tartrate [Lopressor] 12.5 mg PO BID 11/13/15 [History] Multivitamins, Thera [Multivitamin (formulary)] 1 tab PO DAILY 11/13/15 [History ] lamoTRIgine [LaMICtal] 50 mg PO DAILY@0900 11/13/15 [History] lamoTRIgine [LaMICtal] 100 mg PO HS 11/13/15 [History] Meclizine [Antivert] 12.5 mg PO BID tab 03/26/16 [Rx] Levothyroxine Sodium [Synthroid] 50 mcg PO DAILY 08/12/17 [History] Divalproex ER [Depakote ER] 500 mg PO BID tab.er.24h 08/15/17 [Rx] Follow up Appointment(s)/Referral(s): Annemarie Funes III, MD [Primary Care Provider] - 1-2 days Elidia Lopez MD [STAFF PHYSICIAN] - 2 Weeks Activity/Diet/Wound Care/Special Instructions: Diet: Continue with cardiac diet Activity as tolerated Discharge Disposition: TRANSFER TO SNF/ECF
[2017-08-16 15:32] VITALS: BP 137/73; PULSE 69; RESP 16; TEMP 97
== END 2017-08-16 17:21 | DRG 149 ==
LOC: EC 11:18 → 4MS4W 14:28
PROVIDERS: ADMIT Hospitalist; ATTEND Hospitalist
DX: R42 Dizziness and giddiness (principal); G40.802 Other epilepsy, not intractable, without status epilepticus; G81.94 Hemiplegia, unspecified affecting left nondominant side; H53.8 Other visual disturbances; R53.1 Weakness; T42.6X5A Adverse effect of other antiepileptic and sedative-hypnotic drugs, initial encounter; D69.6 Thrombocytopenia, unspecified; E03.9 Hypothyroidism, unspecified; E78.00 Pure hypercholesterolemia, unspecified; E78.5 Hyperlipidemia, unspecified; I10 Essential (primary) hypertension; R25.1 Tremor, unspecified; L40.9 Psoriasis, unspecified; Z79.82 Long term (current) use of aspirin; Z79.899 Other long term (current) drug therapy; Z79.890 Hormone replacement therapy; Z91.81 History of falling; Z90.49 Acquired absence of other specified parts of digestive tract; Z98.42 Cataract extraction status, left eye; Z98.41 Cataract extraction status, right eye; Z96.1 Presence of intraocular lens; Z80.3 Family history of malignant neoplasm of breast; Z80.52 Family history of malignant neoplasm of bladder; Z82.49 Family history of ischemic heart disease and other diseases of the circulatory system; Z83.3 Family history of diabetes mellitus; Z83.49 Family history of other endocrine, nutritional and metabolic diseases; Y92.009 Unspecified place in unspecified non-institutional (private) residence as the place of occurrence of the external cause
CPT/HCPCS: 36415; 70450; 71046; 80048; 80053; 80076; 80164; 80165; 81003; 82550; 82553; 83605; 83735; 84484; 85025; 85610; 85730; 93005; 94760; 95819; 96360; 96361; 99285

== ENCOUNTER → 2019-04-27 | Outpatient (CLI) | payer BC ==
--- NOTE | 2019-04-29 09:35 | MM ---
Reason for exam: screening (asymptomatic). Last mammogram was performed 1 year and 1 month ago. History: Patient is postmenopausal and is nulliparous. Family history of breast cancer in mother and breast cancer in aunt. Physical Findings: A clinical breast exam by your physician is recommended on an annual basis and results should be correlated with mammographic findings. MG 3D Screening Mammo W/Cad Bilateral CC and MLO view(s) were taken. Prior study comparison: March 28, 2018, bilateral MG 3d screening mammo w/cad. February 18, 2017, bilateral MG 3d screening mammo w/cad. The breast tissue is heterogeneously dense. This may lower the sensitivity of mammography. No significant changes when compared with prior studies. ASSESSMENT: Negative, BI-RAD 1 RECOMMENDATION: Routine screening mammogram of both breasts in 1 year.
== END | disposition home or self-care (01) ==
LOC: RADMAMWWP 13:17
PROVIDERS: ATTEND Family Medicine
DX: Z12.31 Encounter for screening mammogram for malignant neoplasm of breast (principal)
CPT/HCPCS: 77063; 77067

== ENCOUNTER → 2020-06-24 | Outpatient (CLI) | payer BC ==
--- NOTE | 2020-06-27 14:14 | MM ---
Reason for exam: screening (asymptomatic). Last mammogram was performed 1 year and 2 months ago. History: Patient is postmenopausal and is nulliparous. Family history of breast cancer in mother and breast cancer in aunt. Physical Findings: A clinical breast exam by your physician is recommended on an annual basis and results should be correlated with mammographic findings. MG Screening Mammo w CAD Bilateral CC and MLO view(s) were taken. Prior study comparison: April 27, 2019, bilateral MG 3d screening mammo w/cad. March 28, 2018, bilateral MG 3d screening mammo w/cad. The breast tissue is heterogeneously dense. This may lower the sensitivity of mammography. There are benign appearing dystrophic round calcifications bilaterally. Focal asymmetry 1.6cm posterior inner aspect CC view only. ASSESSMENT: Incomplete: need additional imaging evaluation, BI-RAD 0 RECOMMENDATION: Special view mammogram of the right breast. [facility] will attempt to contact patient to return for supplemental views. MURIEL
== END | disposition home or self-care (01) ==
LOC: RADMAMWWP 08:21
PROVIDERS: ATTEND Family Medicine
DX: Z12.31 Encounter for screening mammogram for malignant neoplasm of breast (principal); Z78.0 Asymptomatic menopausal state; Z80.3 Family history of malignant neoplasm of breast
CPT/HCPCS: 77067

== ENCOUNTER → 2020-07-22 | Outpatient (CLI) | payer BC ==
--- NOTE | 2020-07-25 10:06 | MM ---
Reason for exam: additional evaluation requested from abnormal screening. Last mammogram was performed 1 month ago. History: Patient is postmenopausal and is nulliparous. Family history of breast cancer in mother, breast cancer in maternal aunt, and breast cancer in maternal grandfather. Physical Findings: Nurse did not find any significant physical abnormalities on exam. MG Work Up Mamm w CAD RT CC and MLO view(s) were taken of the right breast. Prior study comparison: June 24, 2020, bilateral MG screening mammo w CAD. April 27, 2019, bilateral MG 3d screening mammo w/cad. There is no discrete abnormality including area of concern. These results were verbally communicated with the patient and result sheet given to the patient on 07/22/20. ASSESSMENT: Probably benign, BI-RAD 3 RECOMMENDATION: Follow-up diagnostic mammogram of the right breast in 6 months.
== END | disposition home or self-care (01) ==
LOC: RADMAMWWP 13:41
PROVIDERS: ATTEND Family Medicine
DX: Z78.0 Asymptomatic menopausal state (principal); Z80.3 Family history of malignant neoplasm of breast
CPT/HCPCS: 77065

== ENCOUNTER → 2021-06-29 | Outpatient (CLI) | payer MEDICARE ==
--- NOTE | 2021-06-29 11:25 | XR ---
Limited right knee HISTORY: Pain 2 views the right knee on 3 images correlated prior exam 01/24/2017 Joint space loss and marginal spurring in the medial compartment is again noted, alignment and bone m ineralization are table. Spurring is again noted at the patellofemoral joint with some associated los s of joint space suspected. No sizable suprapatellar joint effusion noted. No fracture or dislocation . IMPRESSION: Osteoarthritis.
== END | disposition home or self-care (01) ==
LOC: RADXRMAIN 09:24
PROVIDERS: ATTEND Family Medicine
DX: M17.11 Unilateral primary osteoarthritis, right knee (principal)

== ENCOUNTER → 2021-09-04 | Outpatient (CLI) | payer MEDICARE ==
--- NOTE | 2021-09-05 08:20 | MM ---
Reason for Exam: Additional evaluation requested from abnormal screening. Last screening mammogram was performed 1 month(s) ago. Patient History: Menarche at age 12. Patient has no children. Postmenopausal. Maternal grandfather had breast cancer. Maternal aunt had breast cancer. Mother had breast cancer. Risk Values: Rachael 5 year model risk: 3.3%. NCI Lifetime model risk: 12.0%. Prior Study Comparison: 12/21/2013 Screening Mammogram, [facility]. 02/08/2015 Screening Mammogram, [facility]. 02/18/2017 Bilateral Screening Mammogram, [facility]. 03/28/2018 Bilateral Screening Mammogram, [facility]. 04/27/2019 Bilateral Screening Mammogram, [facility]. 06/24/2020 Bilateral Screening Mammogram, [facility]. 07/22/2020 Right Diagnostic Mammogram, [facility]. 03/17/2021 Right Diagnostic Mammogram, [facility]. 07/28/2021 Bilateral MG 3D screening mammo w/cad, [facility]. Tissue Density: Right: The breast tissue is heterogeneously dense. This may lower the sensitivity of mammography. Findings: Analyzed By CAD. Under compression breast tissue disperses normally. No residual spiculated or lobular mass or distortion is identified. Cautionary 6 month follow-up is recommended. Overall Assessment: Probably benign, BI-RAD 3 Management: Diagnostic Mammogram of the right breast in 6 months. A clinical breast exam by your physician is recommended on an annual basis and results should be correlated with mammographic findings. This exam should not preclude additional follow-up of suspicious palpable abnormalities. Results were given to the patient verbally at the time of exam. Electronically signed and approved by: Rinku Torres D.O. Radiologis
== END | disposition home or self-care (01) ==
LOC: RADMAMWWP 14:03
PROVIDERS: ATTEND Family Medicine
DX: R92.8 Other abnormal and inconclusive findings on diagnostic imaging of breast (principal)
CPT/HCPCS: 77065; G0279; 77061

== ENCOUNTER → 2022-08-29 | Outpatient (CLI) | payer MEDICARE ==
--- NOTE | 2022-08-29 14:00 | MM ---
Reason for Exam: Additional evaluation requested from prior study. Last mammogram was performed 1 year(s) and 1 month(s) ago. Patient History: Menarche at age 12. Patient has no children. Postmenopausal. Maternal grandfather had breast cancer. Maternal aunt had breast cancer under age 50. Mother had breast cancer at or over age 50. Risk Values: Rachael 5 year model risk: 3.3%. NCI Lifetime model risk: 11.5%. Prior Study Comparison: 02/18/2017 Bilateral Screening Mammogram, [facility]. 03/28/2018 Bilateral Screening Mammogram, [facility]. 04/27/2019 Bilateral Screening Mammogram, [facility]. 06/24/2020 Bilateral Screening Mammogram, [facility]. 07/22/2020 Right Diagnostic Mammogram, [facility]. 03/17/2021 Right Diagnostic Mammogram, [facility]. 07/28/2021 Bilateral MG 3D screening mammo w/cad, [facility]. 09/04/2021 Right MG 3D work up w/cad RT, [facility]. Tissue Density: The breast tissue is heterogeneously dense. This may lower the sensitivity of mammography. Findings: Analyzed By CAD. Pattern appears symmetrical and stable. No significant interval change. There are some high density areas in the posterior left breast. These are demonstrated to be at the skin level. No suspicious groups of microcalcifications, spiculated or lobular masses, architectural distortion or other secondary signs of malignancy are mammographically apparent. Overall Assessment: Benign, BI-RAD 2 Management: Screening Mammogram of both breasts in 1 year. A negative mammogram report should not preclude additional follow up of suspicious palpable abnormalities. Patient should continue monthly self breast exam. A clinical breast exam by your physician is recommended on an annual basis and results should be correlated with mammographic findings. Electronically signed and approved by: Rinku Torres D.O. Radiologis
== END | disposition home or self-care (01) ==
LOC: RADMAMWWP 11:57
PROVIDERS: ATTEND Family Medicine
DX: R92.8 Other abnormal and inconclusive findings on diagnostic imaging of breast (principal); Z78.0 Asymptomatic menopausal state; Z80.3 Family history of malignant neoplasm of breast
CPT/HCPCS: 77066; G0279; 77062